=== PATIENT | male | born 1930 | race Caucasian/White ===

== ENCOUNTER 2017-05-19 14:26 | Inpatient (IN) | payer MEDICARE ==
[~2017-05-19] VITALS: Ht 188 cm; Wt 91.8 kg
[2017-05-19 15:00] LABS: BASO % 0 % (0-3); EOS # 0.2 x10^3/uL (0.0-0.7); EOS % 2 % (0-3); HEMATOCRIT 38.1 % (39.0-53.0); HEMOGLOBIN 12.7 g/dL (13.0-17.5); LYMPH # 1.5 x10^3/uL (1.0-4.8); LYMPH % 20 % (24-48); MEAN CORPUSCULAR HEMOGLOBIN 30 pg (25-35); MEAN CORPUSCULAR HGB CONC 33 g/dL (31-37); MEAN CORPUSCULAR VOLUME 89 fL (79-100); MONO # 0.5 x10^3/uL (0.0-1.1); MONO % 7 % (0-9); NEUT # 5.2 x10^3uL (1.8-7.7); NEUT % 71 % (31-73); PLATELET COUNT 196 x10^3/uL (140-400); RED BLOOD COUNT 4.26 x10^6/uL (4.30-5.70); RED CELL DISTRIBUTION WIDTH 14.3 % (11.5-14.5); WHITE BLOOD COUNT 7.4 x10^3/uL (4.0-11.0)
[2017-05-19 15:13] LABS: ALBUMIN 3.5 g/dL (3.4-5.0); ALBUMIN/GLOBULIN RATIO 1.2 (1.0-1.7); CALCIUM 8.8 mg/dL (8.5-10.1); CREATININE 1.2 mg/dL (0.7-1.3); GFR 57.7; MAGNESIUM 1.9 mg/dL (1.8-2.4); POTASSIUM 4.2 mmol/L (3.5-5.1); TOTAL BILIRUBIN 0.4 mg/dL (0.2-1.0); TOTAL PROTEIN 6.5 g/dL (6.4-8.2)
[2017-05-19 15:32] LABS: BILIRUBIN,URINE NEG (NEG); CLARITY,URINE CLEAR; COLOR,URINE YELLOW; GLUCOSE,URINE NEG (NEG)
[2017-05-19 15:33] LABS: BACTERIA,URINE 0 /HPF (0-FEW); NITRITE,URINE NEG (NEG); RBC,URINE 0 /HPF (0-2); SQUAMOUS EPITHELIAL CELL,UR MOD /LPF; UROBILINOGEN,URINE 0.2 mg/dL (0.2 mg/dL); WBC,URINE OCC /HPF (0-4)
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
[2017-05-19] MEDS ORDERED: METO25TA4 PO (15:52)
[2017-05-19] MEDS ORDERED: AMLO10TA2 PO (15:52)
[2017-05-19] MEDS ORDERED: ASPI-630 PO (15:52)
[2017-05-19] MEDS ORDERED: TRAZ50TA15 PO ×2 (15:52→17:21)
[2017-05-19] MEDS ORDERED: ATORVASTATIN CA80 MG PO (15:52)
[2017-05-19] MEDS ORDERED: TRAZ-90 PO (15:52)
[2017-05-19] MEDS ORDERED: NAPR-683 PO (15:52)
[2017-05-19] MEDS ORDERED: ACET325T9 PO (15:58)
[2017-05-19] MEDS ORDERED: DONE5TAB56 PO (15:58)
[2017-05-19] MEDS ORDERED: POLY17PO5 PO (15:59)
[2017-05-19] MEDS ORDERED: NAPR-695 PO (16:03)
[2017-05-19] MEDS ORDERED: NAPR-514 PO (16:03)
[2017-05-19] MEDS ORDERED: QUET100T4 PO ×3 (16:08→17:21)
[2017-05-19] MEDS ORDERED: MAGN2400 PO (16:08)
[2017-05-19] MEDS ORDERED: OLAN5TAB9 PO (16:08)
[2017-05-19] MEDS ORDERED: MAG355OR32 PO (16:08)
[2017-05-19] MEDS ORDERED: LORA1TAB PO (16:09)
[2017-05-19] MEDS ORDERED: OLAN10VI2 IM (16:09)
--- NOTE | 2017-05-19 16:30 | NUR ---
Admission Note with Justification for Admission to [facility] Patient admitted to [facility] for protective oversight for emergency stabilization of acute psychiatric crisis. Pt admitted from: LT Facility Mode of arrival: EMS Accompanied By: EMS Precipitating behaviors that initiated intake and admission: combative, cussing, paranoia Description of failure of out patient attempts at stabilization in previous setting list behavior and medication trials: IM Zydis and Ativan Behaviors and assessment findings upon admission: resistive, wandering Plan: Admit for protective oversight for adjustment and stabilization of medications, behaviors and mood. Intense treatment regimen including groups, medication adjustments, therapy, consistent regimen for ADL's, self care, and sleep hygiene. Daily monitoring by Inpatient staff, Psychiatry, and Medical Physician.
[2017-05-19] MEDS ORDERED: METHYL SALICYLATE/MENTHOL TOPICAL OINTMENT 29GM TUBE. TP PRN (16:45)
[2017-05-19] MEDS ORDERED: LORA2VIA4 IJ (17:21)
[2017-05-19] MEDS ORDERED: ACETAMINOPHEN 325 MG TABLET PO PRN (17:30)
[2017-05-19] MEDS: MAGNESIUM HYDROXIDE 2,400 MG/30 ML ORAL.SUSP. PO SCH ×2 (18:00→23:53)
[2017-05-19] MEDS ORDERED: MAG HYDROX/AL HYDROX/SIMETH 30 ML ORAL.SUSP PO SCH (18:00)
[2017-05-19 18:58] VITALS: BP 152/60
[2017-05-19] MEDS: QUEtiapine 100 MG TABLET. PO SCH (19:39)
[2017-05-19] MEDS: METOPROLOL TART IMMED RELEASE 25 MG TABLET PO SCH (19:40)
[2017-05-19] MEDS: NAPROXEN 500 MG TABLET PO SCH (19:40)
[2017-05-19] MEDS: traZODone 100 MG TABLET. PO SCH (19:41)
[2017-05-19] MEDS: ATORVASTATIN CALCIUM 20 MG TABLET PO SCH (19:42)
--- NOTE | 2017-05-19 21:09 | PDOC ---
Exam Note: Eric Note: Please also refer to the separate dictated note~for this date of service dictated separately.~Patient seen individually. Discussed the patient with Nursing staff reviewed the chart.~Reviewed interim history and current functioning. Reviewed vital signs,~Labs/ Radiology~and current medications noted below. Continue current treatment with the changes noted in the dictated addendum note Assessment: Vital Signs: Vital Signs Date Time Temp Pulse Resp B/P (MAP) Pulse Ox O2 Delivery O2 Flow Rate FiO2 05/19/17 19:40 69 152/60 05/19/17 18:58 98.1 18 98 05/19/17 15:40 Room Air Labs: Laboratory Tests Test 05/19/17 14:44 05/19/17 14:47 Urine Collection Type Void Urine Color Yellow Urine Clarity Clear Urine pH 5.5 Urine Specific [place] >=1.030 Urine Protein Trace (NEG-TRACE) Urine Glucose (UA) Neg mg/dL (NEG) Urine Ketones (Stick) Neg mg/dL (NEG) Urine Blood Neg (NEG) Urine Nitrite Neg (NEG) Urine Bilirubin Neg (NEG) Urine Urobilinogen Dipstick 0.2 mg/dL (0.2 mg/dL) Urine Leukocyte Esterase Neg (NEG) Urine RBC 0 /HPF (0-2) Urine WBC Occ /HPF (0-4) Urine Squamous Epithelial Cells Mod /LPF Urine Transitional Epithelial Cells Few /LPF Urine Bacteria 0 /HPF (0-FEW) White Blood Count 7.4 x10^3/uL (4.0-11.0) Red Blood Count 4.26 x10^6/uL (4.30-5.70) L Hemoglobin 12.7 g/dL (13.0-17.5) L Hematocrit 38.1 % (39.0-53.0) L Mean Corpuscular Volume 89 fL (79-100) Mean Corpuscular Hemoglobin 30 pg (25-35) Mean Corpuscular Hemoglobin Concent 33 g/dL (31-37) Red Cell Distribution Width 14.3 % (11.5-14.5) Platelet Count 196 x10^3/uL (140-400) Neutrophils (%) (Auto) 71 % (31-73) Lymphocytes (%) (Auto) 20 % (24-48) L Monocytes (%) (Auto) 7 % (0-9) Eosinophils (%) (Auto) 2 % (0-3) Basophils (%) (Auto) 0 % (0-3) Neutrophils # (Auto) 5.2 x10^3uL (1.8-7.7) Lymphocytes # (Auto) 1.5 x10^3/uL (1.0-4.8) Monocytes # (Auto) 0.5 x10^3/uL (0.0-1.1) Eosinophils # (Auto) 0.2 x10^3/uL (0.0-0.7) Basophils # (Auto) 0.0 x10^3/uL (0.0-0.2) Sodium Level 139 mmol/L (136-145) Potassium Level 4.2 mmol/L (3.5-5.1) Chloride Level 105 mmol/L (98-107) Carbon Dioxide Level 28 mmol/L (21-32) Anion Gap 6 (6-14) Blood Urea Nitrogen 28 mg/dL (8-26) H Creatinine 1.2 mg/dL (0.7-1.3) Estimated GFR (Cockcroft-Gault) 57.7 BUN/Creatinine Ratio 23 (6-20) H Glucose Level 109 mg/dL (70-99) H Calcium Level 8.8 mg/dL (8.5-10.1) Magnesium Level 1.9 mg/dL (1.8-2.4) Total Bilirubin 0.4 mg/dL (0.2-1.0) Aspartate Amino Transferase (AST) 22 U/L (15-37) Alanine Aminotransferase (ALT) 28 U/L (16-63) Alkaline Phosphatase 77 U/L (46-116) Total Protein 6.5 g/dL (6.4-8.2) Albumin 3.5 g/dL (3.4-5.0) Albumin/Globulin Ratio 1.2 (1.0-1.7) Current Medications: Meds: Current Medications Multi-Ingredient Ointment (Analgesic [place]) 1 salma PRN QID PRN TP MUSCLE PAIN; Start 05/19/17 at 16:45 Amlodipine Besylate (Norvasc) 10 mg DAILY PO ; Start 05/20/17 at 09:00 Aspirin (Children'S Aspirin) 81 mg DAILY PO ; Start 05/20/17 at 09:00 Al Hydroxide/Mg Hydroxide (Mylanta Plus Xs) 30 ml Q6HRS PO ; Start 05/19/17 at 18 :00; Stop 05/19/17 at 19:45; Status DC Metoprolol Tartrate (Lopressor) 25 mg BID PO Last administered on 05/19/17at 19: 40; Start 05/19/17 at 21:00 Naproxen (Naprosyn) 500 mg BID PO Last administered on 05/19/17at 19:40; Start at 21:00 Trazodone HCl (Desyrel) 50 mg BIDACLD PO ; Start 05/20/17 at 11:30 Trazodone HCl (Desyrel) 200 mg HS PO Last administered on 05/19/17at 19:41; Start 05/19/17 at 21:00 Atorvastatin Calcium (Lipitor) 80 mg QHS PO Last administered on 05/19/17at 19:42 ; Start 05/19/17 at 21:00 Magnesium Hydroxide (Milk Of Magnesia) 2,400 mg Q6HRS PO ; Start 05/19/17 at 18: 00 Acetaminophen (Tylenol) 325 mg PRN Q6HRS PRN PO PAIN; Start 05/19/17 at 17:30 Polyethylene Glycol (miraLAX) 17 gm DAILY PO ; Start 05/20/17 at 09:00 Quetiapine Fumarate (SEROquel) 50 mg BIDACBL PO ; Start 05/20/17 at 07:30 Quetiapine Fumarate (SEROquel) 100 mg DAILY16 PO ; Start 05/20/17 at 16:00 Quetiapine Fumarate (SEROquel) 100 mg HS PO Last administered on 05/19/17at 19:39 ; Start 05/19/17 at 21:00 Trazodone HCl (Desyrel) 25 mg DAILY PO ; Start 05/20/17 at 09:00 Lorazepam (Ativan) 1 mg PRN Q4HRS PRN PO ANXIETY / AGITATION; Start 05/19/17 at 17:30 Olanzapine (ZyPREXA ZYDIS) 5 mg PRN Q4HRS PRN PO ANXIETY / AGITATION; Start 05/19/17 at 17:45 Al Hydroxide/Mg Hydroxide (Mylanta Plus Xs) 30 ml PRN Q6HRS PRN PO CONSTIPATION ; Start 05/20/17 at 18:00 Active Scripts Active Reported Seroquel (Quetiapine Fumarate) 100 Mg Tablet 100 Mg PO HS Seroquel (Quetiapine Fumarate) 100 Mg Tablet 100 Mg PO DAILY16 Trazodone Hcl 50 Mg Tablet 25 Mg PO DAILY Lorazepam 1 Mg Tablet 1 Mg PO PRN Q4HRS PRN Seroquel (Quetiapine Fumarate) 100 Mg Tablet 50 Mg PO BIDACBL Mi Acid Suspension (Mag Hydrox/Al Hydrox/Simeth) 355 Ml Oral.susp 30 Ml PO PRN Q6HRS Milk Of Magnesia (Magnesium Hydroxide) 2,400 Mg/10 Ml Oral.susp 30 Ml PO PRN Q6HRS PRN Miralax (Polyethylene Glycol 3350) 17 Gm Powd.pack 1 Packet PO DAILY Tylenol (Acetaminophen) 325 Mg Tablet 1 Tab PO PRN Q6HRS PRN Aspirin 81 Mg Tab.chew 81 Mg PO DAILY Amlodipine Besylate 10 Mg Tablet 10 Mg PO DAILY Metoprolol Tartrate 25 Mg Tablet 25 Mg PO BID Trazodone Hcl 100 Mg Tablet 200 Mg PO HS Atorvastatin Calcium 80 Mg Tablet 80 Mg PO QHS Naprosyn (Naproxen) 500 Mg Tablet 500 Mg PO BID Trazodone Hcl 50 Mg Tablet 50 Mg PO BIDACLD I have reviewed the current psychotropics carefully including drug interactions. Risk benefit ratio favors no change other than as noted in my dictated progress note. Diagnosis: Problems: (1) Atrial fibrillation (2) Medical clearance for psychiatric admission GENARO HEATH MD May 19, 2017 21:09
--- NOTE | 2017-05-19 23:59 | NUR ---
Behavior Intervention Response and Plan: BIRP Note: Behavior: Assumed Care of patient, patient located in Bed at shift change. Patient exhibited the following behavior Calm, Disorganized, Compliant. Brief assessment on rounds of vital signs, medication needs, lab studies, and pain. Treatment plan problems :1-2 Intervention: Patient assessed and the following interventions initiated safety checks 15 Minute Checks Head to toe Assessment , Medications , Cognitive Assessment. Response: After interactions and interventions patient responded in the following manner, Disorganized , Restless ,Compliant. Continue to assess behaviors and condition will continue to monitor throughout the shift as needed. Patient educated on ADL's, and hand hygiene. Plan: Continue to monitor Master Treatment Plan for patient's progress toward short term goals of Decreased Agitation, Decreased Aggression, care home goals to return to previous living setting vs placement. Continue to assess patient for changes in above assessment. Monitor for medication needs, pain, and safety concerns. Hourly rounding performed to ensure safe environment.
--- NOTE | 2017-05-20 04:54 | NUR ---
Nsg Note: Pt awoke later in shift & was compliant w/ taking a shower. DIRECTOR OF SALES SUPPORT's reported that pt skin is intact w/ no wounds/rashes noted.
[2017-05-20 06:27] VITALS: BP 147/92
[2017-05-20] MEDS: QUEtiapine 50 MG TABLET. PO SCH ×2 (07:48→11:30)
[2017-05-20] MEDS: METOPROLOL TART IMMED RELEASE 25 MG TABLET PO SCH ×3 (07:48→20:25)
[2017-05-20] MEDS: ASPIRIN 81 MG TAB.CHEW PO SCH (07:48)
[2017-05-20] MEDS: POLYETHYLENE GLYCOL 3350 17 GM PACKET. PO SCH (07:48)
[2017-05-20] MEDS: LORazepam 1 MG TABLET PO PRN (07:48)
[2017-05-20] MEDS: traZODone 50 MG TABLET. PO SCH ×3 (07:48→18:16)
[2017-05-20] MEDS: amLODIPine BESYLATE 10 MG TABLET PO SCH (07:49)
[2017-05-20] MEDS: NAPROXEN 500 MG TABLET PO SCH ×2 (07:49→20:25)
--- NOTE | 2017-05-20 10:05 | NUR ---
Behavior Intervention Response and Plan: BIRP Note: Behavior: Assumed Care of patient, patient located in Dining Room at shift change. Patient exhibited the following behavior Restless, Compulsive, Irritable. Brief assessment on rounds of vital signs, medication needs, lab studies, and pain. Treatment plan problems . Intervention: Patient assessed and the following interventions initiated safety checks 15 Minute Checks Cognitive Assessment , Head to toe Assessment , Medications. Response: After interactions and interventions patient responded in the following manner, Disorganized , Compliant ,Sleeping. Continue to assess behaviors and condition will continue to monitor throughout the shift as needed. Patient educated on ADL's, and hand hygiene. Plan: Continue to monitor Master Treatment Plan for patient's progress toward short term goals of Decreased Agitation, Decreased Aggression, bed bug exterminator goals to return to previous living setting vs placement. Continue to assess patient for changes in above assessment. Monitor for medication needs, pain, and safety concerns. Hourly rounding performed to ensure safe environment.
[2017-05-20] MEDS: MAGNESIUM HYDROXIDE 2,400 MG/30 ML ORAL.SUSP. PO PRN (10:07)
[2017-05-20 10:24] LABS: THYROID STIM HORMONE (TSH) 0.559 uIU/mL (0.358-3.740)
--- NOTE | 2017-05-20 11:21 | EKG ---
[address] [address] Test Date: 2017-05-19 Test Time: 14:50:56 Pat Name: BLAIRE TORRES Department: Room: [address] [place] [address] Gender: M Derrick Builder: JOHN : 1930 Requested By: CANDIDA GERMAN Order Number: [id number] Reading MD: Imer Munoz Measurements Intervals [place] Rate: 60 P: RI: QRS: -63 QRSD: 130 T: 21 QT: 486 QTc: 486 Interpretive Statements ATRIAL FIBRILLATION VENTRICULAR PREMATURE COMPLEX(ES) ABNORMAL LEFT AXIS DEVIATION LEFT ANTERIOR FASCICULAR BLOCK RIGHT BUNDLE BRANCH BLOCK BIFASCICULAR BLOCK QRS(T) CONTOUR ABNORMALITY CONSIDER INFERIOR INFARCT ABNORMAL ECG RI6.01 No previous ECG available for comparison Electronically Signed On 06-01-2017 13:54:40 CDT by Imer Munoz
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
[2017-05-20 12:08] LABS: T3 TOTAL 57 ng/dL (71-180); THYROXINE 5.2 ug/dL (4.5-12.0)
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
[2017-05-20 16:15] VITALS: BP 129/66
[2017-05-20] MEDS ORDERED: MAG HYDROX/AL HYDROX/SIMETH 30 ML ORAL.SUSP PO PRN (18:00)
[2017-05-20] MEDS: QUEtiapine 100 MG TABLET. PO SCH ×2 (18:16→20:24)
--- NOTE | 2017-05-20 20:13 | PDOC ---
Exam Note: Eric Note: Please also refer to the separate dictated note~for this date of service dictated separately.~Patient seen individually. Discussed the patient with Nursing staff reviewed the chart.~Reviewed interim history and current functioning. Reviewed vital signs,~Labs/ Radiology~and current medications noted below. Continue current treatment with the changes noted in the dictated addendum note Assessment: Vital Signs: Vital Signs Date Time Temp Pulse Resp B/P (MAP) Pulse Ox O2 Delivery O2 Flow Rate FiO2 05/20/17 16:15 97.2 66 16 129/66 (87) 95 05/19/17 15:40 Room Air I&O Intake and Output 05/20/17 07:00 Intake Total 440 ml Balance 440 ml Intake Oral 440 ml Current Medications: Meds: Current Medications Multi-Ingredient Ointment (Analgesic [place]) 1 salma PRN QID PRN TP MUSCLE PAIN; Start 05/19/17 at 16:45 Amlodipine Besylate (Norvasc) 10 mg DAILY PO ; Start 05/20/17 at 09:00 Aspirin (Children'S Aspirin) 81 mg DAILY PO Last administered on 05/20/17at 07:48 ; Start 05/20/17 at 09:00 Al Hydroxide/Mg Hydroxide (Mylanta Plus Xs) 30 ml Q6HRS PO ; Start 05/19/17 at 18 :00; Stop 05/19/17 at 19:45; Status DC Metoprolol Tartrate (Lopressor) 25 mg BID PO Last administered on 05/19/17at 19: 40; Start 05/19/17 at 21:00 Naproxen (Naprosyn) 500 mg BID PO Last administered on 05/20/17at 07:49; Start at 21:00 Trazodone HCl (Desyrel) 50 mg BIDACLD PO Last administered on 05/20/17 18:16; Start 05/20/17 at 11:30 Trazodone HCl (Desyrel) 200 mg HS PO Last administered on 05/19/17 19:41; Start 05/19/17 at 21:00 Atorvastatin Calcium (Lipitor) 80 mg QHS PO Last administered on 05/19/17at 19:42 ; Start 05/19/17 at 21:00 Magnesium Hydroxide (Milk Of Magnesia) 2,400 mg Q6HRS PO ; Start 05/19/17 at 18: 00; Stop 05/20/17 at 01:23; Status DC Acetaminophen (Tylenol) 325 mg PRN Q6HRS PRN PO PAIN; Start 05/19/17 at 17:30 Polyethylene Glycol (miraLAX) 17 gm DAILY PO Last administered on 05/20/17at 07: 48; Start 05/20/17 at 09:00 Quetiapine Fumarate (SEROquel) 50 mg BIDACBL PO Last administered on 05/20/17at 11:30; Start 05/20/17 at 07:30 Quetiapine Fumarate (SEROquel) 100 mg DAILY16 PO Last administered on 05/20/17 18:16; Start 05/20/17 at 16:00 Quetiapine Fumarate (SEROquel) 100 mg HS PO Last administered on 05/19/17at 19:39 ; Start 05/19/17 at 21:00 Trazodone HCl (Desyrel) 25 mg DAILY PO Last administered on 05/20/17at 07:48; Start 05/20/17 at 09:00 Lorazepam (Ativan) 1 mg PRN Q4HRS PRN PO ANXIETY / AGITATION; Start 05/19/17 at 17:30 Olanzapine (ZyPREXA ZYDIS) 5 mg PRN Q4HRS PRN PO ANXIETY / AGITATION; Start 05/19/17 at 17:45 Al Hydroxide/Mg Hydroxide (Mylanta Plus Xs) 30 ml PRN Q6HRS PRN PO CONSTIPATION ; Start 05/20/17 at 18:00 Magnesium Hydroxide (Milk Of Magnesia) 2,400 mg PRN Q6HRS PRN PO CONSTIPATION Last administered on 05/20/17at 10:07; Start 05/20/17 at 01:30 Mirtazapine (Remeron) 7.5 mg QHS PO ; Start 05/20/17 at 21:00 Active Scripts Active Reported Seroquel (Quetiapine Fumarate) 100 Mg Tablet 100 Mg PO HS Seroquel (Quetiapine Fumarate) 100 Mg Tablet 100 Mg PO DAILY16 Trazodone Hcl 50 Mg Tablet 25 Mg PO DAILY Lorazepam 1 Mg Tablet 1 Mg PO PRN Q4HRS PRN Seroquel (Quetiapine Fumarate) 100 Mg Tablet 50 Mg PO BIDACBL Mi Acid Suspension (Mag Hydrox/Al Hydrox/Simeth) 355 Ml Oral.susp 30 Ml PO PRN Q6HRS Milk Of Magnesia (Magnesium Hydroxide) 2,400 Mg/10 Ml Oral.susp 30 Ml PO PRN Q6HRS PRN Miralax (Polyethylene Glycol 3350) 17 Gm Powd.pack 1 Packet PO DAILY Tylenol (Acetaminophen) 325 Mg Tablet 1 Tab PO PRN Q6HRS PRN Aspirin 81 Mg Tab.chew 81 Mg PO DAILY Amlodipine Besylate 10 Mg Tablet 10 Mg PO DAILY Metoprolol Tartrate 25 Mg Tablet 25 Mg PO BID Trazodone Hcl 100 Mg Tablet 200 Mg PO HS Atorvastatin Calcium 80 Mg Tablet 80 Mg PO QHS Naprosyn (Naproxen) 500 Mg Tablet 500 Mg PO BID Trazodone Hcl 50 Mg Tablet 50 Mg PO BIDACLD I have reviewed the current psychotropics carefully including drug interactions. Risk benefit ratio favors no change other than as noted in my dictated progress note. Diagnosis: Problems: (1) Atrial fibrillation (2) Medical clearance for psychiatric admission (3) Anxiety disorder (4) Dementia in Alzheimer's disease with delusions (5) Dementia in Alzheimer's disease with depression (6) Dementia, vascular, with delusions (7) Dementia, vascular, with depression (8) Impulse control disorder GENARO HEATH MD May 20, 2017 20:13
[2017-05-20] MEDS: traZODone 100 MG TABLET. PO SCH (20:24)
[2017-05-20] MEDS: ATORVASTATIN CALCIUM 20 MG TABLET PO SCH (20:24)
[2017-05-20] MEDS: MIRTAZAPINE 7.5 MG TABLET. PO SCH (20:26)
[2017-05-20 23:06] LABS: HEMOGLOBIN A1C 5.5 % (4.8-5.6)
--- NOTE | 2017-05-21 00:03 | NUR ---
Behavior Intervention Response and Plan: BIRP Note: Behavior: Assumed Care of patient, patient located in Day Room at shift change. Patient exhibited the following behavior Restless, Disorganized, Resistive. Brief assessment on rounds of vital signs, medication needs, lab studies, and pain. Treatment plan problems:1-2 Intervention: Patient assessed and the following interventions initiated safety checks 15 Minute Checks Cognitive Assessment , Head to toe Assessment , Medications. Response: After interactions and interventions patient responded in the following manner, Disorganized , Irritable ,Disorganized. Continue to assess behaviors and condition will continue to monitor throughout the shift as needed. Patient educated on ADL's, and hand hygiene. Plan: Continue to monitor Master Treatment Plan for patient's progress toward short term goals of Decreased Agitation, Decreased Aggression, intermediate goals to return to previous living setting vs placement. Continue to assess patient for changes in above assessment. Monitor for medication needs, pain, and safety concerns. Hourly rounding performed to ensure safe environment.
[2017-05-21] MEDS: LORazepam 1 MG TABLET PO PRN (00:09)
--- NOTE | 2017-05-21 00:30 | NUR ---
Nsg Note: Pt was given prn zydis along w/ prn ativan @ 2300 secondary to pt trying to move & turn over furniture in dayroom. Attempts to de-escalate pt by re-direction & distraction merely seemed to escalate pt further. PRNs were effective as pt is currently in bed sleeping. Will cont. to monitor
[2017-05-21 06:27] VITALS: BP 105/58
[2017-05-21] MEDS: QUEtiapine 50 MG TABLET. PO SCH ×2 (07:46→11:35)
[2017-05-21] MEDS: POLYETHYLENE GLYCOL 3350 17 GM PACKET. PO SCH (07:46)
[2017-05-21] MEDS: traZODone 50 MG TABLET. PO SCH ×3 (07:47→16:25)
[2017-05-21] MEDS: ASPIRIN 81 MG TAB.CHEW PO SCH (07:47)
[2017-05-21] MEDS: NAPROXEN 500 MG TABLET PO SCH ×2 (07:48→19:50)
[2017-05-21] MEDS: METOPROLOL TART IMMED RELEASE 25 MG TABLET PO SCH ×2 (07:51→19:49)
[2017-05-21] MEDS: amLODIPine BESYLATE 10 MG TABLET PO SCH (07:51)
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
--- NOTE | 2017-05-21 11:27 | NUR ---
Psychosocial assessment completed with Pt.'s son over the phone. Pt. grew up in [place], [place] with two sisters and two brothers on a farm. Pt. completed high school and enlisted in the [employer]. Pt. never saw combat and per son, does receive VA benefits. 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 Pt. was recently admitted to [facility] and returned to his facility for one day before being taken to the ER. Pt. has no family history of mental health diagnosis. Son would like Pt. to engage more in activities and would like Pt. to return to [facility]. SWS called and left a message for SW at [facility].
--- NOTE | 2017-05-21 13:46 | NUR ---
Behavior Intervention Response and Plan: BIRP Note: Behavior: Assumed Care of patient, patient located in Dining Room at shift change. Patient exhibited the following behavior Disorganized, , Compliant. Brief assessment on rounds of vital signs, medication needs, lab studies, and pain. Treatment plan problems . Intervention: Patient assessed and the following interventions initiated safety checks 15 Minute Checks Cognitive Assessment , Head to toe Assessment , Medications. Response: After interactions and interventions patient responded in the following manner, Calm , Wandering ,Disorganized. Continue to assess behaviors and condition will continue to monitor throughout the shift as needed. Patient educated on ADL's, and hand hygiene. 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 Continue to assess patient for changes in above assessment. Monitor for medication needs, pain, and safety concerns. Hourly rounding performed to ensure safe environment.
[2017-05-21] MEDS: QUEtiapine 100 MG TABLET. PO SCH ×2 (16:26→19:50)
[2017-05-21 16:28] VITALS: BP 126/70
[2017-05-21] MEDS: traZODone 100 MG TABLET. PO SCH (19:50)
[2017-05-21] MEDS: MIRTAZAPINE 7.5 MG TABLET. PO SCH (19:50)
[2017-05-21] MEDS: ATORVASTATIN CALCIUM 20 MG TABLET PO SCH (19:51)
--- NOTE | 2017-05-21 20:01 | PDOC ---
Exam Note: Eric Note: Please also refer to the separate dictated note~for this date of service dictated separately.~Patient seen individually. Discussed the patient with Nursing staff reviewed the chart.~Reviewed interim history and current functioning. Reviewed vital signs,~Labs/ Radiology~and current medications noted below. Continue current treatment with the changes noted in the dictated addendum note Assessment: Vital Signs: Vital Signs Date Time Temp Pulse Resp B/P (MAP) Pulse Ox O2 Delivery O2 Flow Rate FiO2 05/21/17 19:49 69 126/70 05/21/17 16:28 97.3 20 100 05/19/17 15:40 Room Air I&O Intake and Output 05/21/17 07:00 Intake Total 480 ml Balance 480 ml Intake Oral 480 ml # Bowel Movements 2 Current Medications: Meds: Current Medications Multi-Ingredient Ointment (Analgesic [place]) 1 salma PRN QID PRN TP MUSCLE PAIN; Start 05/19/17 at 16:45 Amlodipine Besylate (Norvasc) 10 mg DAILY PO ; Start 05/20/17 at 09:00 Aspirin (Children'S Aspirin) 81 mg DAILY PO Last administered on 05/21/17at 07:47 ; Start 05/20/17 at 09:00 Al Hydroxide/Mg Hydroxide (Mylanta Plus Xs) 30 ml Q6HRS PO ; Start 05/19/17 at 18 :00; Stop 05/19/17 at 19:45; Status DC Metoprolol Tartrate (Lopressor) 25 mg BID PO Last administered on 05/21/17at 19: 49; Start 05/19/17 at 21:00 Naproxen (Naprosyn) 500 mg BID PO Last administered on 05/21/17at 19:50; Start at 21:00 Trazodone HCl (Desyrel) 50 mg BIDACLD PO Last administered on 05/21/17at 16:25; Start 05/20/17 at 11:30 Trazodone HCl (Desyrel) 200 mg HS PO Last administered on 05/21/17 19:50; Start 05/19/17 at 21:00 Atorvastatin Calcium (Lipitor) 80 mg QHS PO Last administered on 05/21/17at 19:51 ; Start 05/19/17 at 21:00 Magnesium Hydroxide (Milk Of Magnesia) 2,400 mg Q6HRS PO ; Start 05/19/17 at 18: 00; Stop 05/20/17 at 01:23; Status DC Acetaminophen (Tylenol) 325 mg PRN Q6HRS PRN PO PAIN; Start 05/19/17 at 17:30 Polyethylene Glycol (miraLAX) 17 gm DAILY PO Last administered on 05/21/17 07: 46; Start 05/20/17 at 09:00 Quetiapine Fumarate (SEROquel) 50 mg BIDACBL PO Last administered on 05/21/17 11:35; Start 05/20/17 at 07:30 Quetiapine Fumarate (SEROquel) 100 mg DAILY16 PO Last administered on 05/21/17 16:26; Start 05/20/17 at 16:00 Quetiapine Fumarate (SEROquel) 100 mg HS PO Last administered on 05/21/17 19:50 ; Start 05/19/17 at 21:00 Trazodone HCl (Desyrel) 25 mg DAILY PO Last administered on 05/21/17 07:47; Start 05/20/17 at 09:00 Lorazepam (Ativan) 1 mg PRN Q4HRS PRN PO ANXIETY / AGITATION Last administered on 05/21/17 00:09; Start 05/19/17 at 17:30 Olanzapine (ZyPREXA ZYDIS) 5 mg PRN Q4HRS PRN PO ANXIETY / AGITATION Last administered on 05/21/17 00:09; Start 05/19/17 at 17:45 Al Hydroxide/Mg Hydroxide (Mylanta Plus Xs) 30 ml PRN Q6HRS PRN PO CONSTIPATION ; Start 05/20/17 at 18:00 Magnesium Hydroxide (Milk Of Magnesia) 2,400 mg PRN Q6HRS PRN PO CONSTIPATION Last administered on 05/20/17 10:07; Start 05/20/17 at 01:30 Mirtazapine (Remeron) 7.5 mg QHS PO Last administered on 05/21/17 19:50; Start 05/20/17 at 21:00 Active Scripts Active Reported Seroquel (Quetiapine Fumarate) 100 Mg Tablet 100 Mg PO HS Seroquel (Quetiapine Fumarate) 100 Mg Tablet 100 Mg PO DAILY16 Trazodone Hcl 50 Mg Tablet 25 Mg PO DAILY Lorazepam 1 Mg Tablet 1 Mg PO PRN Q4HRS PRN Seroquel (Quetiapine Fumarate) 100 Mg Tablet 50 Mg PO BIDACBL Mi Acid Suspension (Mag Hydrox/Al Hydrox/Simeth) 355 Ml Oral.susp 30 Ml PO PRN Q6HRS Milk Of Magnesia (Magnesium Hydroxide) 2,400 Mg/10 Ml Oral.susp 30 Ml PO PRN Q6HRS PRN Miralax (Polyethylene Glycol 3350) 17 Gm Powd.pack 1 Packet PO DAILY Tylenol (Acetaminophen) 325 Mg Tablet 1 Tab PO PRN Q6HRS PRN Aspirin 81 Mg Tab.chew 81 Mg PO DAILY Amlodipine Besylate 10 Mg Tablet 10 Mg PO DAILY Metoprolol Tartrate 25 Mg Tablet 25 Mg PO BID Trazodone Hcl 100 Mg Tablet 200 Mg PO HS Atorvastatin Calcium 80 Mg Tablet 80 Mg PO QHS Naprosyn (Naproxen) 500 Mg Tablet 500 Mg PO BID Trazodone Hcl 50 Mg Tablet 50 Mg PO BIDACLD I have reviewed the current psychotropics carefully including drug interactions. Risk benefit ratio favors no change other than as noted in my dictated progress note. 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
--- NOTE | 2017-05-21 21:39 | NUR ---
Behavior Intervention Response and Plan: BIRP Note: Behavior: Assumed Care of patient, patient located in Day Room at shift change. Patient exhibited the following behavior Calm, Compliant, Cooperative. Brief assessment on rounds of vital signs, medication needs, lab studies, and pain. Treatment plan problems Dementia W/BD and Fall Risk. Intervention: Patient assessed and the following interventions initiated safety checks 15 Minute Checks Cognitive Assessment , Medications , Oral Hydration. Response: After interactions and interventions patient responded in the following manner, Calm , Compliant ,Cooperative. Continue to assess behaviors and condition will continue to monitor throughout the shift as needed. Patient educated on ADL's, and hand hygiene. Plan: Continue to monitor Master Treatment Plan for patient's progress toward short term goals of Decreased Agitation, Decreased Anxiety, fci goals to return to previous living setting vs placement. Continue to assess patient for changes in above assessment. Monitor for medication needs, pain, and safety concerns. Hourly rounding performed to ensure safe environment.
--- NOTE | 2017-05-21 23:12 | NUR ---
Nursing Note Patient up from bed repeatedly and is difficult to redirect. Patient continues to exit bed without assistance after multiple attempts by staff to make patient more comfortable as well as offer toileting. Patient is drowsy and at a high risk of falling if patient continues getting out of bed without assistance. Patient given PRN Zyprexa per PRN order.
[2017-05-22] MEDS: LORazepam 1 MG TABLET PO PRN (00:21)
--- NOTE | 2017-05-22 00:25 | NUR ---
Nursing Note Patient is agitated and up without assistance in bedroom. Patient cussing at this nurse while attempting to assess the needs of the patient. Patient is non redirectable and is having difficulty tracking during conversation. Patient given PRN Ativan per PRN order.
--- NOTE | 2017-05-22 03:01 | PN ---
DATE: 05/20/2017 This is a late entry for 05/20/2017, covers elements not covered in my initial note of 05/20/2017. SUBJECTIVE: I met with the patient the evening of 05/20/2017. The patient slept 4-1/2 hours previous evening, had a shower previous night, was more cooperative. Trazodone could have caused the false positive urine test for ecstasy in the patient, per review by nursing staff. He slept somewhat poorly previous evening, appetite fair. He is confused, delusional at times, believed another demented patient is his . Ambulates independently. REVIEW OF SYSTEMS: No CV, , pulmonary, eye, ENT system symptoms on review. Reliability poor. MENTAL STATUS EXAMINATION: Oriented to himself. Insight, judgment, recent and remote memory, attention, concentration, fund of knowledge poor, consistent with his diagnosis mentioned in my initial note. IMPRESSION: Major neurocognitive disorder, Alzheimer, vascular with depression, delusion, behavioral disturbance. PLAN: Start Remeron 7.5 mg at bedtime. Continue rest unchanged from my initial note. MAN Natalie HEATH MD DR: RICK/sterling JOB#: [id number] / [id number]
[2017-05-22 06:08] VITALS: BP 151/96
[2017-05-22] MEDS: NAPROXEN 500 MG TABLET PO SCH ×2 (07:45→20:42)
[2017-05-22] MEDS: ASPIRIN 81 MG TAB.CHEW PO SCH (07:45)
[2017-05-22] MEDS: amLODIPine BESYLATE 10 MG TABLET PO SCH (07:46)
[2017-05-22] MEDS: QUEtiapine 50 MG TABLET. PO SCH ×2 (07:46→11:50)
[2017-05-22] MEDS: METOPROLOL TART IMMED RELEASE 25 MG TABLET PO SCH ×2 (07:46→20:42)
[2017-05-22] MEDS: POLYETHYLENE GLYCOL 3350 17 GM PACKET. PO SCH (07:46)
[2017-05-22] MEDS: traZODone 50 MG TABLET. PO SCH ×3 (07:46→16:04)
--- NOTE | 2017-05-22 10:08 | NUR ---
Behavior Intervention Response and Plan: BIRP Note: Behavior: Assumed Care of patient, patient located in Dining Room at shift change. Patient exhibited the following behavior Restless, Compulsive, Disorganized. Brief assessment on rounds of vital signs, medication needs, lab studies, and pain. Treatment plan problems . Intervention: Patient assessed and the following interventions initiated safety checks 15 Minute Checks Cognitive Assessment , Head to toe Assessment , Medications. Response: After interactions and interventions patient responded in the following manner, Disorganized , Irritable ,Drowsy. Continue to assess behaviors and condition will continue to monitor throughout the shift as needed. Patient educated on ADL's, and hand hygiene. 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 Continue to assess patient for changes in above assessment. Monitor for medication needs, pain, and safety concerns. Hourly rounding performed to ensure safe environment.
--- NOTE | 2017-05-22 15:10 | NUR ---
Attempted to meet and complete reassessment; however, Pt. was sleeping and both 1020 and 1510
[2017-05-22 15:57] VITALS: BP 124/75
[2017-05-22] MEDS: QUEtiapine 100 MG TABLET. PO SCH ×2 (16:04→20:42)
--- NOTE | 2017-05-22 17:26 | NUR ---
Patient has appeared less drowsy this shift. He is very confused/disorganized and it is difficult for him to follow simple instructions. Patient becomes resistive with staff if they attempt to escalera him and will become combative. Patient needs to be approached in a calm matter and given step by step instructions in simple commands. Patient allowed this nurse to shave his face and trim his nails without any issues. He has been compliant with medications this shift, meds were crushed and hidden in chocolate pudding/ice cream. Patient ambulating in a wheelchair at this time d/t weakness, but ambulation is encouraged, will continue to monitor.
--- NOTE | 2017-05-22 19:57 | PDOC ---
Exam Note: Eric Note: Please also refer to the separate dictated note~for this date of service dictated separately.~Patient seen individually. Discussed the patient with Nursing staff reviewed the chart.~Reviewed interim history and current functioning. Reviewed vital signs,~Labs/ Radiology~and current medications noted below. Continue current treatment with the changes noted in the dictated addendum note Assessment: Vital Signs: Vital Signs Date Time Temp Pulse Resp B/P (MAP) Pulse Ox O2 Delivery O2 Flow Rate FiO2 05/22/17 15:57 97.8 61 18 124/75 (91) 99 05/19/17 15:40 Room Air I&O Intake and Output 05/22/17 07:00 Intake Total 1200 ml Balance 1200 ml Intake Oral 1200 ml # Voids 1 # Bowel Movements 1 Current Medications: Meds: Current Medications Multi-Ingredient Ointment (Analgesic [place]) 1 salma PRN QID PRN TP MUSCLE PAIN; Start 05/19/17 at 16:45 Amlodipine Besylate (Norvasc) 10 mg DAILY PO Last administered on 05/22/17at 07: 46; Start 05/20/17 at 09:00 Aspirin (Children'S Aspirin) 81 mg DAILY PO Last administered on 05/22/17at 07:45 ; Start 05/20/17 at 09:00 Al Hydroxide/Mg Hydroxide (Mylanta Plus Xs) 30 ml Q6HRS PO ; Start 05/19/17 at 18 :00; Stop 05/19/17 at 19:45; Status DC Metoprolol Tartrate (Lopressor) 25 mg BID PO Last administered on 05/22/17at 07: 46; Start 05/19/17 at 21:00 Naproxen (Naprosyn) 500 mg BID PO Last administered on 05/22/17at 07:45; Start at 21:00 Trazodone HCl (Desyrel) 50 mg BIDACLD PO Last administered on 05/22/17at 16:04; Start 05/20/17 at 11:30 Trazodone HCl (Desyrel) 200 mg HS PO Last administered on 05/21/17 19:50; Start 05/19/17 at 21:00 Atorvastatin Calcium (Lipitor) 80 mg QHS PO Last administered on 05/21/17 19:51 ; Start 05/19/17 at 21:00 Magnesium Hydroxide (Milk Of Magnesia) 2,400 mg Q6HRS PO ; Start 05/19/17 at 18: 00; Stop 05/20/17 at 01:23; Status DC Acetaminophen (Tylenol) 325 mg PRN Q6HRS PRN PO PAIN; Start 05/19/17 at 17:30 Polyethylene Glycol (miraLAX) 17 gm DAILY PO Last administered on 05/22/17 07: 46; Start 05/20/17 at 09:00 Quetiapine Fumarate (SEROquel) 50 mg BIDACBL PO Last administered on 05/22/17 11:50; Start 05/20/17 at 07:30 Quetiapine Fumarate (SEROquel) 100 mg DAILY16 PO Last administered on 05/22/17 16:04; Start 05/20/17 at 16:00 Quetiapine Fumarate (SEROquel) 100 mg HS PO Last administered on 05/21/17 19:50 ; Start 05/19/17 at 21:00 Trazodone HCl (Desyrel) 25 mg DAILY PO Last administered on 05/22/17 07:46; Start 05/20/17 at 09:00 Lorazepam (Ativan) 1 mg PRN Q4HRS PRN PO ANXIETY / AGITATION Last administered on 05/22/17 00:21; Start 05/19/17 at 17:30 Olanzapine (ZyPREXA ZYDIS) 5 mg PRN Q4HRS PRN PO ANXIETY / AGITATION Last administered on 05/21/17 23:09; Start 05/19/17 at 17:45 Al Hydroxide/Mg Hydroxide (Mylanta Plus Xs) 30 ml PRN Q6HRS PRN PO CONSTIPATION ; Start 05/20/17 at 18:00 Magnesium Hydroxide (Milk Of Magnesia) 2,400 mg PRN Q6HRS PRN PO CONSTIPATION Last administered on 05/20/17 10:07; Start 05/20/17 at 01:30 Mirtazapine (Remeron) 7.5 mg QHS PO Last administered on 05/21/17 19:50; Start 05/20/17 at 21:00; Stop 05/22/17 at 18:07; Status DC Vitamin D (Vitamin D3) 2,000 unit DAILY PO ; Start 05/23/17 at 09:00 Cyanocobalamin (Vitamin B-12) 1,000 mcg DAILY PO ; Start 05/23/17 at 09:00 Mirtazapine (Remeron) 15 mg QHS PO ; Start 05/22/17 at 21:00 Active Scripts Active Reported Seroquel (Quetiapine Fumarate) 100 Mg Tablet 100 Mg PO HS Seroquel (Quetiapine Fumarate) 100 Mg Tablet 100 Mg PO DAILY16 Trazodone Hcl 50 Mg Tablet 25 Mg PO DAILY Lorazepam 1 Mg Tablet 1 Mg PO PRN Q4HRS PRN Seroquel (Quetiapine Fumarate) 100 Mg Tablet 50 Mg PO BIDACBL Mi Acid Suspension (Mag Hydrox/Al Hydrox/Simeth) 355 Ml Oral.susp 30 Ml PO PRN Q6HRS Milk Of Magnesia (Magnesium Hydroxide) 2,400 Mg/10 Ml Oral.susp 30 Ml PO PRN Q6HRS PRN Miralax (Polyethylene Glycol 3350) 17 Gm Powd.pack 1 Packet PO DAILY Tylenol (Acetaminophen) 325 Mg Tablet 1 Tab PO PRN Q6HRS PRN Aspirin 81 Mg Tab.chew 81 Mg PO DAILY Amlodipine Besylate 10 Mg Tablet 10 Mg PO DAILY Metoprolol Tartrate 25 Mg Tablet 25 Mg PO BID Trazodone Hcl 100 Mg Tablet 200 Mg PO HS Atorvastatin Calcium 80 Mg Tablet 80 Mg PO QHS Naprosyn (Naproxen) 500 Mg Tablet 500 Mg PO BID Trazodone Hcl 50 Mg Tablet 50 Mg PO BIDACLD I have reviewed the current psychotropics carefully including drug interactions. Risk benefit ratio favors no change other than as noted in my dictated progress note. 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
[2017-05-22] MEDS: ATORVASTATIN CALCIUM 20 MG TABLET PO SCH (20:42)
[2017-05-22] MEDS: MIRTAZAPINE 15 MG TABLET PO SCH (20:43)
[2017-05-22] MEDS: traZODone 100 MG TABLET. PO SCH (20:43)
--- NOTE | 2017-05-22 21:37 | PN ---
DATE: 05/21/2017 This is a late entry, 05/21/2017, covers the elements not covered in my initial note, 05/21/2017. SUBJECTIVE: I met with the patient in the evening of 05/21/2017. The patient slept 5-1/4 hours previous evening, somewhat drowsy during the day, takes meds crushed in pudding, confused. REVIEW OF SYSTEMS: No CV, , pulmonary, eye, ENT system symptoms on review. Reliability poor. MENTAL STATUS EXAM: Oriented to self. Insight, judgment, recent and remote memory, attention, concentration, fund of knowledge poor, consistent with his diagnosis as mentioned in my initial note. IMPRESSION: Major neurocognitive disorder, Alzheimer, vascular with delusion, depression, behavioral disturbance. PLAN: Continue psychotropics as mentioned in my initial note, we will adjust further depending on his progress. MAN Natalie HEATH MD DR: RICK/sterling JOB#: [id number] / [id number]
--- NOTE | 2017-05-22 22:17 | NUR ---
Behavior Intervention Response and Plan: BIRP Note: Behavior: Assumed Care of patient, patient located in Day Room at shift change. Patient exhibited the following behavior Wandering, Restless, Disorganized. Brief assessment on rounds of vital signs, medication needs, lab studies, and pain. Treatment plan problems Dementia W/BD and Fall Risk. Intervention: Patient assessed and the following interventions initiated safety checks 15 Minute Checks Cognitive Assessment , Medications , Oral Hydration. Response: After interactions and interventions patient responded in the following manner, Wandering , Restless ,Compliant. Continue to assess behaviors and condition will continue to monitor throughout the shift as needed. Patient educated on ADL's, and hand hygiene. 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 Continue to assess patient for changes in above assessment. Monitor for medication needs, pain, and safety concerns. Hourly rounding performed to ensure safe environment.
[2017-05-23 06:24] VITALS: BP 150/71
[2017-05-23] MEDS: ASPIRIN 81 MG TAB.CHEW PO SCH (09:23)
[2017-05-23] MEDS: amLODIPine BESYLATE 10 MG TABLET PO SCH (09:24)
[2017-05-23] MEDS: NAPROXEN 500 MG TABLET PO SCH ×2 (09:24→19:49)
[2017-05-23] MEDS: QUEtiapine 50 MG TABLET. PO SCH ×2 (09:24→12:28)
[2017-05-23] MEDS: traZODone 50 MG TABLET. PO SCH ×3 (09:25→16:16)
[2017-05-23] MEDS: METOPROLOL TART IMMED RELEASE 25 MG TABLET PO SCH ×2 (09:25→21:00)
[2017-05-23] MEDS: POLYETHYLENE GLYCOL 3350 17 GM PACKET. PO SCH (09:25)
[2017-05-23] MEDS: CHOLECALCIFEROL (VITAMIN D3) 1,000 UNIT TABLET PO SCH (09:27)
[2017-05-23] MEDS: CYANOCOBALAMIN (VITAMIN B-12) 1,000 MCG TABLET. PO SCH (09:27)
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
--- NOTE | 2017-05-23 15:00 | NUR ---
WEEKLY THERAPEUTIC RECREATION NOTE Date of Admission: 05/19/2017 Date of AT Assessment: 05/23/2017 Goal aimed: to increase his alertness and engagement Initial goal: Pt. will participate in all individual and group sensory stimulation activities. Weekly progress towards goal: NA, goal set today Group participation level: zero Behaviors observed: sleeping most of the time, hard of hearing, difficult to engage Plan: no changes to goal
--- NOTE | 2017-05-23 16:12 | NUR ---
Behavior Intervention Response and Plan: BIRP Note: Behavior: Assumed Care of patient, patient located in Day Room at shift change. Patient exhibited the following behavior Calm, Disorganized, Able to Focus on Task. Brief assessment on rounds of vital signs, medication needs, lab studies, and pain. Treatment plan problems 1-2. Intervention: Patient assessed and the following interventions initiated safety checks 15 Minute Checks Cognitive Assessment , Head to toe Assessment , Medications. Response: After interactions and interventions patient responded in the following manner, Cooperative , Compliant ,Calm. Continue to assess behaviors and condition will continue to monitor throughout the shift as needed. Patient educated on ADL's, and hand hygiene. Plan: Continue to monitor Master Treatment Plan for patient's progress toward short term goals of Decreased Agitation, Decreased Aggression, fci goals to return to previous living setting vs placement. Continue to assess patient for changes in above assessment. Monitor for medication needs, pain, and safety concerns. Hourly rounding performed to ensure safe environment.
[2017-05-23] MEDS: QUEtiapine 100 MG TABLET. PO SCH ×2 (16:16→19:48)
[2017-05-23 16:23] VITALS: BP 104/64
--- NOTE | 2017-05-23 19:37 | PN ---
DATE: 05/22/2017 PSYCHIATRIC PROGRESS NOTE This is a late entry of 05/22/2017 covers elements not covered in my initial note of 05/22/2017. I met with the patient in the evening of 05/22/2017. HISTORY OF PRESENT ILLNESS: The patient slept 2-1/4 hours previous evening. He is less drowsy, quite slow in his reactions, disorganized, resistive to toileting. REVIEW OF SYSTEMS: No CV, , pulmonary, eye, ENT system symptoms on review. Reliability poor. MENTAL STATUS EXAM: Oriented to himself. Insight, judgment, recent and remote memory, attention, concentration, fund of knowledge poor, consistent with his diagnosis mentioned in my initial note. IMPRESSION: Major neurocognitive disorder, Alzheimer, vascular with depression, delusion, behavioral disturbance. Rest unchanged. PLAN: Increase Remeron to 15 mg p.o. at bedtime to help with insomnia and anxiety. Continue rest unchanged per initial note. GENARO HEATH MD DR: RICK/sterling JOB#: [id number] / [id number]
[2017-05-23] MEDS: MIRTAZAPINE 15 MG TABLET PO SCH (19:48)
[2017-05-23] MEDS: ATORVASTATIN CALCIUM 20 MG TABLET PO SCH (19:50)
[2017-05-23] MEDS: traZODone 100 MG TABLET. PO SCH (19:50)
--- NOTE | 2017-05-23 19:59 | PDOC ---
Exam Note: Eric Note: Please also refer to the separate dictated note~for this date of service dictated separately.~Patient seen individually. Discussed the patient with Nursing staff reviewed the chart.~Reviewed interim history and current functioning. Reviewed vital signs,~Labs/ Radiology~and current medications noted below. Continue current treatment with the changes noted in the dictated addendum note Assessment: Vital Signs: Vital Signs Date Time Temp Pulse Resp B/P (MAP) Pulse Ox O2 Delivery O2 Flow Rate FiO2 05/23/17 16:23 97.7 58 20 104/64 (77) 97 05/19/17 15:40 Room Air I&O Intake and Output 05/23/17 07:00 Intake Total 1080 ml Balance 1080 ml Intake Oral 1080 ml # Voids 1 Current Medications: Meds: Current Medications Multi-Ingredient Ointment (Analgesic Flora) 1 salma PRN QID PRN TP MUSCLE PAIN; Start 05/19/17 at 16:45 Amlodipine Besylate (Norvasc) 10 mg DAILY PO Last administered on 05/23/17 09: 24; Start 05/20/17 at 09:00 Aspirin (Children'S Aspirin) 81 mg DAILY PO Last administered on 05/23/17 09:23 ; Start 05/20/17 at 09:00 Al Hydroxide/Mg Hydroxide (Mylanta Plus Xs) 30 ml Q6HRS PO ; Start 05/19/17 at 18 :00; Stop 05/19/17 at 19:45; Status DC Metoprolol Tartrate (Lopressor) 25 mg BID PO Last administered on 05/23/17at 09: 25; Start 05/19/17 at 21:00 Naproxen (Naprosyn) 500 mg BID PO Last administered on 05/23/17at 19:49; Start at 21:00 Trazodone HCl (Desyrel) 50 mg BIDACLD PO Last administered on 05/23/17 16:16; Start 05/20/17 at 11:30 Trazodone HCl (Desyrel) 200 mg HS PO Last administered on 05/23/17 19:50; Start 05/19/17 at 21:00 Atorvastatin Calcium (Lipitor) 80 mg QHS PO Last administered on 05/23/17 19:50 ; Start 05/19/17 at 21:00 Magnesium Hydroxide (Milk Of Magnesia) 2,400 mg Q6HRS PO ; Start 05/19/17 at 18: 00; Stop 05/20/17 at 01:23; Status DC Acetaminophen (Tylenol) 325 mg PRN Q6HRS PRN PO PAIN; Start 05/19/17 at 17:30 Polyethylene Glycol (miraLAX) 17 gm DAILY PO Last administered on 05/23/17 09: 25; Start 05/20/17 at 09:00 Quetiapine Fumarate (SEROquel) 50 mg BIDACBL PO Last administered on 05/23/17 12:28; Start 05/20/17 at 07:30 Quetiapine Fumarate (SEROquel) 100 mg DAILY16 PO Last administered on 05/23/17 16:16; Start 05/20/17 at 16:00 Quetiapine Fumarate (SEROquel) 100 mg HS PO Last administered on 05/23/17 19:48 ; Start 05/19/17 at 21:00 Trazodone HCl (Desyrel) 25 mg DAILY PO Last administered on 05/23/17 09:25; Start 05/20/17 at 09:00 Lorazepam (Ativan) 1 mg PRN Q4HRS PRN PO ANXIETY / AGITATION Last administered on 05/22/17 00:21; Start 05/19/17 at 17:30 Olanzapine (ZyPREXA ZYDIS) 5 mg PRN Q4HRS PRN PO ANXIETY / AGITATION Last administered on 05/21/17 23:09; Start 05/19/17 at 17:45 Al Hydroxide/Mg Hydroxide (Mylanta Plus Xs) 30 ml PRN Q6HRS PRN PO CONSTIPATION ; Start 05/20/17 at 18:00 Magnesium Hydroxide (Milk Of Magnesia) 2,400 mg PRN Q6HRS PRN PO CONSTIPATION Last administered on 05/20/17 10:07; Start 05/20/17 at 01:30 Mirtazapine (Remeron) 7.5 mg QHS PO Last administered on 05/21/17 19:50; Start 05/20/17 at 21:00; Stop 05/22/17 at 18:07; Status DC Vitamin D (Vitamin D3) 2,000 unit DAILY PO Last administered on 05/23/17 09:27 ; Start 05/23/17 at 09:00 Cyanocobalamin (Vitamin B-12) 1,000 mcg DAILY PO Last administered on 05/23/17at 09:27; Start 05/23/17 at 09:00 Mirtazapine (Remeron) 15 mg QHS PO Last administered on 05/23/17at 19:48; Start 05/22/17 at 21:00 Active Scripts Active Reported Seroquel (Quetiapine Fumarate) 100 Mg Tablet 100 Mg PO HS Seroquel (Quetiapine Fumarate) 100 Mg Tablet 100 Mg PO DAILY16 Trazodone Hcl 50 Mg Tablet 25 Mg PO DAILY Lorazepam 1 Mg Tablet 1 Mg PO PRN Q4HRS PRN Seroquel (Quetiapine Fumarate) 100 Mg Tablet 50 Mg PO BIDACBL Mi Acid Suspension (Mag Hydrox/Al Hydrox/Simeth) 355 Ml Oral.susp 30 Ml PO PRN Q6HRS Milk Of Magnesia (Magnesium Hydroxide) 2,400 Mg/10 Ml Oral.susp 30 Ml PO PRN Q6HRS PRN Miralax (Polyethylene Glycol 3350) 17 Gm Powd.pack 1 Packet PO DAILY Tylenol (Acetaminophen) 325 Mg Tablet 1 Tab PO PRN Q6HRS PRN Aspirin 81 Mg Tab.chew 81 Mg PO DAILY Amlodipine Besylate 10 Mg Tablet 10 Mg PO DAILY Metoprolol Tartrate 25 Mg Tablet 25 Mg PO BID Trazodone Hcl 100 Mg Tablet 200 Mg PO HS Atorvastatin Calcium 80 Mg Tablet 80 Mg PO QHS Naprosyn (Naproxen) 500 Mg Tablet 500 Mg PO BID Trazodone Hcl 50 Mg Tablet 50 Mg PO BIDACLD I have reviewed the current psychotropics carefully including drug interactions. Risk benefit ratio favors no change other than as noted in my dictated progress note. Diagnosis: Problems: (1) Medical clearance for psychiatric admission (2) Anxiety disorder (3) Dementia in Alzheimer's disease with delusions (4) Dementia in Alzheimer's disease with depression (5) Dementia, vascular, with delusions (6) Dementia, vascular, with depression (7) Impulse control disorder GENARO HEATH MD May 23, 2017 19:59
--- NOTE | 2017-05-23 21:35 | NUR ---
Behavior Intervention Response and Plan: BIRP Note: Behavior: Assumed Care of patient, patient located in Day Room at shift change. Patient exhibited the following behavior Wandering, Exit Seeking, Disorganized. Brief assessment on rounds of vital signs, medication needs, lab studies, and pain. Treatment plan problems Dementia W/BD and Fall Risk. Intervention: Patient assessed and the following interventions initiated safety checks 15 Minute Checks Cognitive Assessment , Medications , Nutrition. Response: After interactions and interventions patient responded in the following manner, Restless , Wandering ,Disorganized. Continue to assess behaviors and condition will continue to monitor throughout the shift as needed. Patient educated on ADL's, and hand hygiene. Plan: Continue to monitor Master Treatment Plan for patient's progress toward short term goals of Decreased Agitation, Decreased Anxiety, fci goals to return to previous living setting vs placement. Continue to assess patient for changes in above assessment. Monitor for medication needs, pain, and safety concerns. Hourly rounding performed to ensure safe environment.
[2017-05-24 06:17] VITALS: BP 147/78
[2017-05-24] MEDS: QUEtiapine 50 MG TABLET. PO SCH ×2 (07:44→11:33)
[2017-05-24] MEDS: ASPIRIN 81 MG TAB.CHEW PO SCH (07:55)
[2017-05-24] MEDS: CYANOCOBALAMIN (VITAMIN B-12) 1,000 MCG TABLET. PO SCH (07:55)
[2017-05-24] MEDS: POLYETHYLENE GLYCOL 3350 17 GM PACKET. PO SCH (07:55)
[2017-05-24] MEDS: NAPROXEN 500 MG TABLET PO SCH ×2 (07:56→19:49)
[2017-05-24] MEDS: traZODone 50 MG TABLET. PO SCH ×2 (07:57→11:33)
[2017-05-24] MEDS: METOPROLOL TART IMMED RELEASE 25 MG TABLET PO SCH ×2 (08:02→20:01)
[2017-05-24] MEDS: CHOLECALCIFEROL (VITAMIN D3) 1,000 UNIT TABLET PO SCH (08:02)
[2017-05-24] MEDS: amLODIPine BESYLATE 10 MG TABLET PO SCH (08:03)
--- NOTE | 2017-05-24 15:46 | NUR ---
Behavior Intervention Response and Plan: BIRP Note: Behavior: Assumed Care of patient, patient located in Dining Room at shift change. Patient exhibited the following behavior Disorganized, Calm, Compliant. Brief assessment on rounds of vital signs, medication needs, lab studies, and pain. Treatment plan problems 1-2. Intervention: Patient assessed and the following interventions initiated safety checks 15 Minute Checks Cognitive Assessment , Head to toe Assessment , Medications. Response: After interactions and interventions patient responded in the following manner, Cooperative , Restless ,Delusions. Continue to assess behaviors and condition will continue to monitor throughout the shift as needed. Patient educated on ADL's, and hand hygiene. 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 Continue to assess patient for changes in above assessment. Monitor for medication needs, pain, and safety concerns. Hourly rounding performed to ensure safe environment.
[2017-05-24] MEDS: QUEtiapine 100 MG TABLET. PO SCH ×2 (16:10→19:50)
[2017-05-24 16:20] VITALS: BP 94/57
[2017-05-24] MEDS: DIVALPROEX 125 MG CAP.SPRINK PO SCH (16:25)
[2017-05-24] MEDS ORDERED: traZODone 50 MG TABLET. PO SCH (16:30)
[2017-05-24] MEDS: traZODone 100 MG TABLET. PO SCH (19:49)
[2017-05-24] MEDS: ATORVASTATIN CALCIUM 20 MG TABLET PO SCH (19:49)
[2017-05-24] MEDS: MIRTAZAPINE 15 MG TABLET PO SCH (19:50)
--- NOTE | 2017-05-24 20:03 | PDOC ---
Exam Note: Eric Note: Please also refer to the separate dictated note~for this date of service dictated separately.~Patient seen individually. Discussed the patient with Nursing staff reviewed the chart.~Reviewed interim history and current functioning. Reviewed vital signs,~Labs/ Radiology~and current medications noted below. Continue current treatment with the changes noted in the dictated addendum note Assessment: Vital Signs: Vital Signs Date Time Temp Pulse Resp B/P (MAP) Pulse Ox O2 Delivery O2 Flow Rate FiO2 05/24/17 20:01 78 129/75 05/24/17 16:20 98.1 17 96 05/19/17 15:40 Room Air I&O Intake and Output 05/24/17 07:00 Intake Total 720 ml Balance 720 ml Intake Oral 720 ml # Voids 1 Current Medications: Meds: Current Medications Multi-Ingredient Ointment (Analgesic Doyle) 1 salma PRN QID PRN TP MUSCLE PAIN; Start 05/19/17 at 16:45 Amlodipine Besylate (Norvasc) 10 mg DAILY PO Last administered on 05/24/17 08: 03; Start 05/20/17 at 09:00 Aspirin (Children'S Aspirin) 81 mg DAILY PO Last administered on 05/24/17at 07:55 ; Start 05/20/17 at 09:00 Al Hydroxide/Mg Hydroxide (Mylanta Plus Xs) 30 ml Q6HRS PO ; Start 05/19/17 at 18 :00; Stop 05/19/17 at 19:45; Status DC Metoprolol Tartrate (Lopressor) 25 mg BID PO Last administered on 05/24/17 20: 01; Start 05/19/17 at 21:00 Naproxen (Naprosyn) 500 mg BID PO Last administered on 05/24/17 19:49; Start at 21:00 Trazodone HCl (Desyrel) 50 mg BIDACLD PO Last administered on 05/24/17 11:33; Start 05/20/17 at 11:30; Stop 05/24/17 at 12:27; Status DC Trazodone HCl (Desyrel) 200 mg HS PO Last administered on 05/24/17 19:49; Start 05/19/17 at 21:00 Atorvastatin Calcium (Lipitor) 80 mg QHS PO Last administered on 3/8/18at 19:49 ; Start 05/19/17 at 21:00 Magnesium Hydroxide (Milk Of Magnesia) 2,400 mg Q6HRS PO ; Start 05/19/17 at 18: 00; Stop 05/20/17 at 01:23; Status DC Acetaminophen (Tylenol) 325 mg PRN Q6HRS PRN PO PAIN; Start 05/19/17 at 17:30 Polyethylene Glycol (miraLAX) 17 gm DAILY PO Last administered on 05/24/17 07: 55; Start 05/20/17 at 09:00 Quetiapine Fumarate (SEROquel) 50 mg BIDACBL PO Last administered on 05/24/17 11:33; Start 05/20/17 at 07:30 Quetiapine Fumarate (SEROquel) 100 mg DAILY16 PO Last administered on 05/24/17 16:10; Start 05/20/17 at 16:00 Quetiapine Fumarate (SEROquel) 100 mg HS PO Last administered on 05/24/17 19:50 ; Start 05/19/17 at 21:00 Trazodone HCl (Desyrel) 25 mg DAILY PO Last administered on 05/24/17 07:57; Start 05/20/17 at 09:00; Stop 05/24/17 at 19:40; Status DC Lorazepam (Ativan) 1 mg PRN Q4HRS PRN PO ANXIETY / AGITATION Last administered on 05/22/17at 00:21; Start 05/19/17 at 17:30 Olanzapine (ZyPREXA ZYDIS) 5 mg PRN Q4HRS PRN PO ANXIETY / AGITATION Last administered on 05/21/17 23:09; Start 05/19/17 at 17:45 Al Hydroxide/Mg Hydroxide (Mylanta Plus Xs) 30 ml PRN Q6HRS PRN PO CONSTIPATION ; Start 05/20/17 at 18:00 Magnesium Hydroxide (Milk Of Magnesia) 2,400 mg PRN Q6HRS PRN PO CONSTIPATION Last administered on 05/20/17 10:07; Start 05/20/17 at 01:30 Mirtazapine (Remeron) 7.5 mg QHS PO Last administered on 05/21/17 19:50; Start 05/20/17 at 21:00; Stop 05/22/17 at 18:07; Status DC Vitamin D (Vitamin D3) 2,000 unit DAILY PO Last administered on 05/24/17at 08:02 ; Start 05/23/17 at 09:00 Cyanocobalamin (Vitamin B-12) 1,000 mcg DAILY PO Last administered on 05/24/17at 07:55; Start 05/23/17 at 09:00 Mirtazapine (Remeron) 15 mg QHS PO Last administered on 05/24/17at 19:50; Start 05/22/17 at 21:00 Trazodone HCl (Desyrel) 25 mg BIDACLD PO Last administered on 05/24/17at 16:25; Start 05/24/17 at 16:30; Stop 05/24/17 at 19:40; Status DC Divalproex Sodium (Depakote Sprinkles) 125 mg BID@0900,1700 PO Last administered on 05/24/17at 16:25; Start 05/24/17 at 17:00 Trazodone HCl (Desyrel) 25 mg TIDWMEALS PO ; Start 05/25/17 at 08:00 Active Scripts Active Reported Seroquel (Quetiapine Fumarate) 100 Mg Tablet 100 Mg PO HS Seroquel (Quetiapine Fumarate) 100 Mg Tablet 100 Mg PO DAILY16 Trazodone Hcl 50 Mg Tablet 25 Mg PO DAILY Lorazepam 1 Mg Tablet 1 Mg PO PRN Q4HRS PRN Seroquel (Quetiapine Fumarate) 100 Mg Tablet 50 Mg PO BIDACBL Mi Acid Suspension (Mag Hydrox/Al Hydrox/Simeth) 355 Ml Oral.susp 30 Ml PO PRN Q6HRS Milk Of Magnesia (Magnesium Hydroxide) 2,400 Mg/10 Ml Oral.susp 30 Ml PO PRN Q6HRS PRN Miralax (Polyethylene Glycol 3350) 17 Gm Powd.pack 1 Packet PO DAILY Tylenol (Acetaminophen) 325 Mg Tablet 1 Tab PO PRN Q6HRS PRN Aspirin 81 Mg Tab.chew 81 Mg PO DAILY Amlodipine Besylate 10 Mg Tablet 10 Mg PO DAILY Metoprolol Tartrate 25 Mg Tablet 25 Mg PO BID Trazodone Hcl 100 Mg Tablet 200 Mg PO HS Atorvastatin Calcium 80 Mg Tablet 80 Mg PO QHS Naprosyn (Naproxen) 500 Mg Tablet 500 Mg PO BID Trazodone Hcl 50 Mg Tablet 50 Mg PO BIDACLD I have reviewed the current psychotropics carefully including drug interactions. Risk benefit ratio favors no change other than as noted in my dictated progress note. Diagnosis: Problems: (1) Medical clearance for psychiatric admission (2) Anxiety disorder (3) Dementia in Alzheimer's disease with delusions (4) Dementia in Alzheimer's disease with depression (5) Dementia, vascular, with delusions (6) Dementia, vascular, with depression (7) Impulse control disorder GENARO HETAH MD May 24, 2017 20:03
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
--- NOTE | 2017-05-25 03:27 | NUR ---
Behavior Intervention Response and Plan: BIRP Note: Behavior: Assumed Care of patient, patient located in Hallway at shift change. Patient exhibited the following behavior Restless, Irritable, Agitated. Brief assessment on rounds of vital signs, medication needs, lab studies, and pain. Treatment plan problems Dementia with BD and Fall Risk. Intervention: Patient assessed and the following interventions initiated safety checks 15 Minute Checks Cognitive Assessment , Head to toe Assessment , Medications. Response: After interactions and interventions patient responded in the following manner, Combative , Angry, Hostile. Continue to assess behaviors and condition will continue to monitor throughout the shift as needed. Patient educated on ADL's, and hand hygiene. 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 Continue to assess patient for changes in above assessment. Monitor for medication needs, pain, and safety concerns. Hourly rounding performed to ensure safe environment.
[2017-05-25 06:18] VITALS: BP 109/69
[2017-05-25] MEDS: QUEtiapine 50 MG TABLET. PO SCH ×2 (07:51→11:30)
[2017-05-25] MEDS: traZODone 50 MG TABLET. PO SCH ×3 (07:56→16:35)
[2017-05-25] MEDS: NAPROXEN 500 MG TABLET PO SCH ×2 (09:12→19:44)
[2017-05-25] MEDS: CYANOCOBALAMIN (VITAMIN B-12) 1,000 MCG TABLET. PO SCH (09:12)
[2017-05-25] MEDS: POLYETHYLENE GLYCOL 3350 17 GM PACKET. PO SCH (09:12)
[2017-05-25] MEDS: amLODIPine BESYLATE 10 MG TABLET PO SCH (09:13)
[2017-05-25] MEDS: METOPROLOL TART IMMED RELEASE 25 MG TABLET PO SCH ×2 (09:13→19:44)
[2017-05-25] MEDS: CHOLECALCIFEROL (VITAMIN D3) 1,000 UNIT TABLET PO SCH (09:13)
[2017-05-25] MEDS: ASPIRIN 81 MG TAB.CHEW PO SCH (09:13)
[2017-05-25] MEDS: DIVALPROEX 125 MG CAP.SPRINK PO SCH ×2 (09:13→16:34)
--- NOTE | 2017-05-25 11:36 | NUR ---
It was reported to this nurse that pt did not sleep well last night. Pt was left sleeping in bed until pt woke up around 1115. Pt was placed in a wheelchair d/t risk for fall r/t being unsteady on his feet. Pt was taken out to the day room and given a yogurt along with his AM medications. Pts afternoon medications were held was held since pt had just received his morning medication. Will continue to monitor.
--- NOTE | 2017-05-25 15:38 | NUR ---
Behavior Intervention Response and Plan: BIRP Note: Behavior: Assumed Care of patient, patient located in Day Room at shift change. Patient exhibited the following behavior Calm, Disorganized, Compliant. Brief assessment on rounds of vital signs, medication needs, lab studies, and pain. Treatment plan problems 1-2. Intervention: Patient assessed and the following interventions initiated safety checks 15 Minute Checks Cognitive Assessment , Head to toe Assessment , Medications. Response: After interactions and interventions patient responded in the following manner, Drowsy , Disorganized ,Cooperative. Continue to assess behaviors and condition will continue to monitor throughout the shift as needed. Patient educated on ADL's, and hand hygiene. Plan: Continue to monitor Master Treatment Plan for patient's progress toward short term goals of Decreased Aggression, Decreased Agitation, snf goals to return to previous living setting vs placement. Continue to assess patient for changes in above assessment. Monitor for medication needs, pain, and safety concerns. Hourly rounding performed to ensure safe environment.
[2017-05-25] MEDS: QUEtiapine 100 MG TABLET. PO SCH ×2 (16:07→19:45)
[2017-05-25 16:31] VITALS: BP 136/71
[2017-05-25] MEDS: ATORVASTATIN CALCIUM 20 MG TABLET PO SCH (19:44)
[2017-05-25] MEDS: traZODone 100 MG TABLET. PO SCH (19:44)
[2017-05-25] MEDS: MIRTAZAPINE 15 MG TABLET PO SCH (19:44)
--- NOTE | 2017-05-25 20:00 | PDOC ---
Exam Note: Eric Note: Please also refer to the separate dictated note~for this date of service dictated separately.~Patient seen individually. Discussed the patient with Nursing staff reviewed the chart.~Reviewed interim history and current functioning. Reviewed vital signs,~Labs/ Radiology~and current medications noted below. Continue current treatment with the changes noted in the dictated addendum note Assessment: Vital Signs: Vital Signs Date Time Temp Pulse Resp B/P (MAP) Pulse Ox O2 Delivery O2 Flow Rate FiO2 05/25/17 19:44 60 136/71 05/25/17 16:31 97.6 16 94 05/19/17 15:40 Room Air I&O Intake and Output 05/25/17 07:00 Intake Total 1200 ml Balance 1200 ml Intake Oral 1200 ml # Voids 2 Current Medications: Meds: Current Medications Multi-Ingredient Ointment (Analgesic [place]) 1 salma PRN QID PRN TP MUSCLE PAIN; Start 05/19/17 at 16:45 Amlodipine Besylate (Norvasc) 10 mg DAILY PO Last administered on 05/25/17 09: 13; Start 05/20/17 at 09:00 Aspirin (Children'S Aspirin) 81 mg DAILY PO Last administered on 05/25/17at 09:13 ; Start 05/20/17 at 09:00 Al Hydroxide/Mg Hydroxide (Mylanta Plus Xs) 30 ml Q6HRS PO ; Start 05/19/17 at 18 :00; Stop 05/19/17 at 19:45; Status DC Metoprolol Tartrate (Lopressor) 25 mg BID PO Last administered on 05/25/17 19: 44; Start 05/19/17 at 21:00 Naproxen (Naprosyn) 500 mg BID PO Last administered on 05/25/17 19:44; Start at 21:00 Trazodone HCl (Desyrel) 50 mg BIDACLD PO Last administered on 05/24/17 11:33; Start 05/20/17 at 11:30; Stop 05/24/17 at 12:27; Status DC Trazodone HCl (Desyrel) 200 mg HS PO Last administered on 05/25/17 19:44; Start 05/19/17 at 21:00 Atorvastatin Calcium (Lipitor) 80 mg QHS PO Last administered on 3/9/18at 19:44 ; Start 05/19/17 at 21:00 Magnesium Hydroxide (Milk Of Magnesia) 2,400 mg Q6HRS PO ; Start 05/19/17 at 18: 00; Stop 05/20/17 at 01:23; Status DC Acetaminophen (Tylenol) 325 mg PRN Q6HRS PRN PO PAIN; Start 05/19/17 at 17:30 Polyethylene Glycol (miraLAX) 17 gm DAILY PO Last administered on 05/25/17 09: 12; Start 05/20/17 at 09:00 Quetiapine Fumarate (SEROquel) 50 mg BIDACBL PO Last administered on 05/25/17 07:51; Start 05/20/17 at 07:30 Quetiapine Fumarate (SEROquel) 100 mg DAILY16 PO Last administered on 05/25/17 16:07; Start 05/20/17 at 16:00 Quetiapine Fumarate (SEROquel) 100 mg HS PO Last administered on 05/25/17 19:45 ; Start 05/19/17 at 21:00 Trazodone HCl (Desyrel) 25 mg DAILY PO Last administered on 05/24/17 07:57; Start 05/20/17 at 09:00; Stop 05/24/17 at 19:40; Status DC Lorazepam (Ativan) 1 mg PRN Q4HRS PRN PO ANXIETY / AGITATION Last administered on 05/22/17at 00:21; Start 05/19/17 at 17:30 Olanzapine (ZyPREXA ZYDIS) 5 mg PRN Q4HRS PRN PO ANXIETY / AGITATION Last administered on 05/24/17at 20:45; Start 05/19/17 at 17:45 Al Hydroxide/Mg Hydroxide (Mylanta Plus Xs) 30 ml PRN Q6HRS PRN PO CONSTIPATION ; Start 05/20/17 at 18:00 Magnesium Hydroxide (Milk Of Magnesia) 2,400 mg PRN Q6HRS PRN PO CONSTIPATION Last administered on 05/20/17 10:07; Start 05/20/17 at 01:30 Mirtazapine (Remeron) 7.5 mg QHS PO Last administered on 05/21/17 19:50; Start 05/20/17 at 21:00; Stop 05/22/17 at 18:07; Status DC Vitamin D (Vitamin D3) 2,000 unit DAILY PO Last administered on 05/25/17at 09:13 ; Start 05/23/17 at 09:00 Cyanocobalamin (Vitamin B-12) 1,000 mcg DAILY PO Last administered on 05/25/17at 09:12; Start 05/23/17 at 09:00 Mirtazapine (Remeron) 15 mg QHS PO Last administered on 05/25/17at 19:44; Start 05/22/17 at 21:00 Trazodone HCl (Desyrel) 25 mg BIDACLD PO Last administered on 05/24/17at 16:25; Start 05/24/17 at 16:30; Stop 05/24/17 at 19:40; Status DC Divalproex Sodium (Depakote Sprinkles) 125 mg BID@0900,1700 PO Last administered on 05/25/17at 16:34; Start 05/24/17 at 17:00 Trazodone HCl (Desyrel) 25 mg TIDWMEALS PO Last administered on 05/25/17at 16:35 ; Start 05/25/17 at 08:00; Stop 05/25/17 at 18:48; Status DC Trazodone HCl (Desyrel) 12.5 mg TIDWMEALS PO ; Start 05/26/17 at 08:00 Active Scripts Active Reported Seroquel (Quetiapine Fumarate) 100 Mg Tablet 100 Mg PO HS Seroquel (Quetiapine Fumarate) 100 Mg Tablet 100 Mg PO DAILY16 Trazodone Hcl 50 Mg Tablet 25 Mg PO DAILY Lorazepam 1 Mg Tablet 1 Mg PO PRN Q4HRS PRN Seroquel (Quetiapine Fumarate) 100 Mg Tablet 50 Mg PO BIDACBL Mi Acid Suspension (Mag Hydrox/Al Hydrox/Simeth) 355 Ml Oral.susp 30 Ml PO PRN Q6HRS Milk Of Magnesia (Magnesium Hydroxide) 2,400 Mg/10 Ml Oral.susp 30 Ml PO PRN Q6HRS PRN Miralax (Polyethylene Glycol 3350) 17 Gm Powd.pack 1 Packet PO DAILY Tylenol (Acetaminophen) 325 Mg Tablet 1 Tab PO PRN Q6HRS PRN Aspirin 81 Mg Tab.chew 81 Mg PO DAILY Amlodipine Besylate 10 Mg Tablet 10 Mg PO DAILY Metoprolol Tartrate 25 Mg Tablet 25 Mg PO BID Trazodone Hcl 100 Mg Tablet 200 Mg PO HS Atorvastatin Calcium 80 Mg Tablet 80 Mg PO QHS Naprosyn (Naproxen) 500 Mg Tablet 500 Mg PO BID Trazodone Hcl 50 Mg Tablet 50 Mg PO BIDACLD I have reviewed the current psychotropics carefully including drug interactions. Risk benefit ratio favors no change other than as noted in my dictated progress note. Diagnosis: Problems: (1) Medical clearance for psychiatric admission (2) Anxiety disorder (3) Dementia in Alzheimer's disease with delusions (4) Dementia in Alzheimer's disease with depression (5) Dementia, vascular, with delusions (6) Dementia, vascular, with depression (7) Impulse control disorder GENARO HEATH MD May 25, 2017 20:00
--- NOTE | 2017-05-25 21:27 | PN ---
DATE: 05/23/2017 This late entry of 05/23/2017 covers the elements not covered in my initial note 05/23/2017. SUBJECTIVE: I met with the patient evening of 05/23/2017. The patient was quite restless previous evening, intrusive, takes his medications crushed in ice-cream. Slept 5 hours. Slept until 9:00 a.m. on 05/23/2017. Using the walker. Takes his medications whole. REVIEW OF SYSTEMS: No CV, , pulmonary, eye, ENT system symptoms on review. Reliability poor. MENTAL STATUS EXAM: Oriented to himself. Insight, judgment, recent and remote memory, attention, concentration, fund of knowledge poor, consistent with his diagnosis mentioned in my initial note. IMPRESSION: Major neurocognitive disorder, Alzheimer, vascular with depression, delusion, behavioral disturbance. PLAN: Continue psychotropics mentioned in my initial note. May add Depakote if mood lability, aggression resurfaces. MAN Natalie HEATH MD DR: RICK/sterling JOB#: [id number] / [id number]
--- NOTE | 2017-05-25 23:31 | PN ---
DATE: 05/24/2017 PSYCHIATRIC PROGRESS NOTE This is a late entry for 05/24/2017, covers elements not covered in my initial note of 05/24/2017. SUBJECTIVE: The patient was staffed at a treatment team meeting with the entire team the morning of 05/24/2017 and the patient's son, Haider and the entire staff from the [facility] attended the treatment team meeting. Reviewed the patient's history, diagnoses, recent failed inpatient psychiatric hospitalizations. The patient wanders into other patient's rooms, difficult to redirect, sleeping about 4-1/2 hours, appetite 80%, restless, compliant with medications. REVIEW OF SYSTEMS: Hard of hearing. No CV, , pulmonary, eye, ENT system symptoms on review. Reliability poor. MENTAL STATUS EXAM: Oriented to himself. Insight, judgment, recent and remote memory, attention, concentration, fund of knowledge poor, consistent with his diagnosis. He often sleeps off in groups. LABORATORY DATA: Reviewed. IMPRESSION: Major neurocognitive disorder, vascular, Alzheimer's with delusion, depression, behavioral disturbance. PLAN: Start trazodone, which should be reduced from 50 mg b.i.d. a.c. to 25 mg b.i.d. Start Depakote 125 mg at 9:00 a.m. and 5:00 p.m. Check CBC, CMP, valproic acid level in 3 days. Continue rest of the psychotropics. GENARO HEATH MD DR: RICK/sterling JOB#: [id number] / [id number]
--- NOTE | 2017-05-26 01:31 | NUR ---
Behavior Intervention Response and Plan: BIRP Note: Behavior: Assumed Care of patient, patient located in Hallway at shift change. Patient exhibited the following behavior Restless, Irritable, Agitated. Brief assessment on rounds of vital signs, medication needs, lab studies, and pain. Treatment plan problems Dementia with BD and Fall Risk. Intervention: Patient assessed and the following interventions initiated safety checks 15 Minute Checks Cognitive Assessment , Head to toe Assessment , Medications. Response: After interactions and interventions patient responded in the following manner, Calm, Compliant, Cooperative. Continue to assess behaviors and condition will continue to monitor throughout the shift as needed. Patient educated on ADL's, and hand hygiene. 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 Continue to assess patient for changes in above assessment. Monitor for medication needs, pain, and safety concerns. Hourly rounding performed to ensure safe environment.
[2017-05-26 07:11] VITALS: BP 98/60
[2017-05-26] MEDS: QUEtiapine 50 MG TABLET. PO SCH ×2 (07:53→12:37)
[2017-05-26] MEDS: traZODone 50 MG TABLET. PO SCH ×3 (07:55→16:47)
[2017-05-26 08:07] VITALS: BP 122/66
[2017-05-26] MEDS: DIVALPROEX 125 MG CAP.SPRINK PO SCH ×2 (08:08→16:46)
[2017-05-26] MEDS: NAPROXEN 500 MG TABLET PO SCH ×2 (08:08→19:32)
[2017-05-26] MEDS: POLYETHYLENE GLYCOL 3350 17 GM PACKET. PO SCH (08:08)
[2017-05-26] MEDS: CHOLECALCIFEROL (VITAMIN D3) 1,000 UNIT TABLET PO SCH (08:08)
[2017-05-26] MEDS: ASPIRIN 81 MG TAB.CHEW PO SCH (08:08)
[2017-05-26] MEDS: CYANOCOBALAMIN (VITAMIN B-12) 1,000 MCG TABLET. PO SCH (08:08)
[2017-05-26] MEDS: METOPROLOL TART IMMED RELEASE 25 MG TABLET PO SCH ×2 (08:09→19:33)
[2017-05-26] MEDS: amLODIPine BESYLATE 10 MG TABLET PO SCH (08:14)
[2017-05-26 16:27] VITALS: BP 105/54
--- NOTE | 2017-05-26 16:27 | NUR ---
Behavior Intervention Response and Plan: BIRP Note: Behavior: Assumed Care of patient, patient located in Dining Room at shift change. Patient exhibited the following behavior Calm, Compliant, Disorganized. Brief assessment on rounds of vital signs, medication needs, lab studies, and pain. Treatment plan problems 1-2. Intervention: Patient assessed and the following interventions initiated safety checks 15 Minute Checks Cognitive Assessment , Head to toe Assessment , Medications. Response: After interactions and interventions patient responded in the following manner, Wandering , Exit Seeking ,Delusions. Continue to assess behaviors and condition will continue to monitor throughout the shift as needed. Patient educated on ADL's, and hand hygiene. 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 Continue to assess patient for changes in above assessment. Monitor for medication needs, pain, and safety concerns. Hourly rounding performed to ensure safe environment.
[2017-05-26] MEDS: QUEtiapine 100 MG TABLET. PO SCH ×2 (16:46→19:33)
--- NOTE | 2017-05-26 18:10 | NUR ---
Pt up ad bobby, wandering in the hallways most of the day. Pt was exit seeking, checking doors as he walked by them. Pt was calm and cooperative with all medication whole and assessments. Pt was intrusive with other pts at times but was able to be successfully redirected. Pt is very disorganized and delusional. Pt stated to another staff member "I will get you all of the information you need so we can get out of this wayward house." Pt later stated "That's my " to one of the other pts when pt was told what her name was pt stated "yeah, that's my wifes name. Will continue to monitor.
[2017-05-26] MEDS: traZODone 100 MG TABLET. PO SCH (19:32)
[2017-05-26] MEDS: ATORVASTATIN CALCIUM 20 MG TABLET PO SCH (19:33)
[2017-05-26] MEDS: MIRTAZAPINE 15 MG TABLET PO SCH (19:33)
--- NOTE | 2017-05-26 20:10 | NUR ---
Nursing Note: Pt up ambulating in the bell, exit seeking stating "I need to get out of here" HS Medications administered hidden in Ice Cream at 1999, Pt continued to escalate, becoming increasingly agitated attempting to rip the hand rail off of the wall. PRN Zydis administered per PRN order hidden in Ice Cream at this time.
--- NOTE | 2017-05-26 21:15 | PDOC ---
Exam Note: Eric Note: Please also refer to the separate dictated note~for this date of service dictated separately.~Patient seen individually. Discussed the patient with Nursing staff reviewed the chart.~Reviewed interim history and current functioning. Reviewed vital signs,~Labs/ Radiology~and current medications noted below. Continue current treatment with the changes noted in the dictated addendum note Assessment: Vital Signs: Vital Signs Date Time Temp Pulse Resp B/P (MAP) Pulse Ox O2 Delivery O2 Flow Rate FiO2 05/26/17 19:33 61 110/62 05/26/17 16:27 97.4 18 96 Room Air I&O Intake and Output 05/26/17 07:00 Intake Total 600 ml Balance 600 ml Intake Oral 600 ml # Voids 3 Current Medications: Meds: Current Medications Multi-Ingredient Ointment (Analgesic [place]) 1 salma PRN QID PRN TP MUSCLE PAIN; Start 05/19/17 at 16:45 Amlodipine Besylate (Norvasc) 10 mg DAILY PO Last administered on 05/26/17at 08: 14; Start 05/20/17 at 09:00 Aspirin (Children'S Aspirin) 81 mg DAILY PO Last administered on 05/26/17at 08: 08; Start 05/20/17 at 09:00 Al Hydroxide/Mg Hydroxide (Mylanta Plus Xs) 30 ml Q6HRS PO ; Start 05/19/17 at 18 :00; Stop 05/19/17 at 19:45; Status DC Metoprolol Tartrate (Lopressor) 25 mg BID PO Last administered on 05/26/17at 19: 33; Start 05/19/17 at 21:00 Naproxen (Naprosyn) 500 mg BID PO Last administered on 05/26/17at 19:32; Start 05/19/17 at 21:00 Trazodone HCl (Desyrel) 50 mg BIDACLD PO Last administered on 05/24/17 11:33; Start 05/20/17 at 11:30; Stop 05/24/17 at 12:27; Status DC Trazodone HCl (Desyrel) 200 mg HS PO Last administered on 05/26/17 19:32; Start 05/19/17 at 21:00 Atorvastatin Calcium (Lipitor) 80 mg QHS PO Last administered on 05/26/17at 19: 33; Start 05/19/17 at 21:00 Magnesium Hydroxide (Milk Of Magnesia) 2,400 mg Q6HRS PO ; Start 05/19/17 at 18: 00; Stop 05/20/17 at 01:23; Status DC Acetaminophen (Tylenol) 325 mg PRN Q6HRS PRN PO PAIN; Start 05/19/17 at 17:30 Polyethylene Glycol (miraLAX) 17 gm DAILY PO Last administered on 05/26/17 08: 08; Start 05/20/17 at 09:00 Quetiapine Fumarate (SEROquel) 50 mg BIDACBL PO Last administered on 05/26/17 12:37; Start 05/20/17 at 07:30 Quetiapine Fumarate (SEROquel) 100 mg DAILY16 PO Last administered on 16:46; Start 05/20/17 at 16:00 Quetiapine Fumarate (SEROquel) 100 mg HS PO Last administered on 05/26/17 19: 33; Start 05/19/17 at 21:00 Trazodone HCl (Desyrel) 25 mg DAILY PO Last administered on 05/24/17 07:57; Start 05/20/17 at 09:00; Stop 05/24/17 at 19:40; Status DC Lorazepam (Ativan) 1 mg PRN Q4HRS PRN PO ANXIETY / AGITATION Last administered on 05/22/17at 00:21; Start 05/19/17 at 17:30 Olanzapine (ZyPREXA ZYDIS) 5 mg PRN Q4HRS PRN PO ANXIETY / AGITATION Last administered on 05/26/17at 20:12; Start 05/19/17 at 17:45 Al Hydroxide/Mg Hydroxide (Mylanta Plus Xs) 30 ml PRN Q6HRS PRN PO CONSTIPATION ; Start 05/20/17 at 18:00 Magnesium Hydroxide (Milk Of Magnesia) 2,400 mg PRN Q6HRS PRN PO CONSTIPATION Last administered on 05/20/17 10:07; Start 05/20/17 at 01:30 Mirtazapine (Remeron) 7.5 mg QHS PO Last administered on 05/21/17 19:50; Start 05/20/17 at 21:00; Stop 05/22/17 at 18:07; Status DC Vitamin D (Vitamin D3) 2,000 unit DAILY PO Last administered on 05/26/17 08:08 ; Start 05/23/17 at 09:00 Cyanocobalamin (Vitamin B-12) 1,000 mcg DAILY PO Last administered on 08:08; Start 05/23/17 at 09:00 Mirtazapine (Remeron) 15 mg QHS PO Last administered on 05/26/17 19:33; Start 05/22/17 at 21:00 Trazodone HCl (Desyrel) 25 mg BIDACLD PO Last administered on 05/24/17 16:25; Start 05/24/17 at 16:30; Stop 05/24/17 at 19:40; Status DC Divalproex Sodium (Depakote Sprinkles) 125 mg BID@0900,1700 PO Last administered on 05/26/17 16:46; Start 05/24/17 at 17:00 Trazodone HCl (Desyrel) 25 mg TIDWMEALS PO Last administered on 05/25/17at 16:35 ; Start 05/25/17 at 08:00; Stop 05/25/17 at 18:48; Status DC Trazodone HCl (Desyrel) 12.5 mg TIDWMEALS PO Last administered on 05/26/17 16: 47; Start 05/26/17 at 08:00 Active Scripts Active Reported Seroquel (Quetiapine Fumarate) 100 Mg Tablet 100 Mg PO HS Seroquel (Quetiapine Fumarate) 100 Mg Tablet 100 Mg PO DAILY16 Trazodone Hcl 50 Mg Tablet 25 Mg PO DAILY Lorazepam 1 Mg Tablet 1 Mg PO PRN Q4HRS PRN Seroquel (Quetiapine Fumarate) 100 Mg Tablet 50 Mg PO BIDACBL Mi Acid Suspension (Mag Hydrox/Al Hydrox/Simeth) 355 Ml Oral.susp 30 Ml PO PRN Q6HRS Milk Of Magnesia (Magnesium Hydroxide) 2,400 Mg/10 Ml Oral.susp 30 Ml PO PRN Q6HRS PRN Miralax (Polyethylene Glycol 3350) 17 Gm Powd.pack 1 Packet PO DAILY Tylenol (Acetaminophen) 325 Mg Tablet 1 Tab PO PRN Q6HRS PRN Aspirin 81 Mg Tab.chew 81 Mg PO DAILY Amlodipine Besylate 10 Mg Tablet 10 Mg PO DAILY Metoprolol Tartrate 25 Mg Tablet 25 Mg PO BID Trazodone Hcl 100 Mg Tablet 200 Mg PO HS Atorvastatin Calcium 80 Mg Tablet 80 Mg PO QHS Naprosyn (Naproxen) 500 Mg Tablet 500 Mg PO BID Trazodone Hcl 50 Mg Tablet 50 Mg PO BIDACLD I have reviewed the current psychotropics carefully including drug interactions. Risk benefit ratio favors no change other than as noted in my dictated progress note. Diagnosis: Problems: (1) Medical clearance for psychiatric admission (2) Anxiety disorder (3) Dementia in Alzheimer's disease with delusions (4) Dementia in Alzheimer's disease with depression (5) Dementia, vascular, with delusions (6) Dementia, vascular, with depression (7) Impulse control disorder GENARO HEATH MD May 26, 2017 21:15
--- NOTE | 2017-05-26 23:53 | NUR ---
Behavior Intervention Response and Plan: BIRP Note: Behavior: Assumed Care of patient, patient located in Hallway at shift change. Patient exhibited the following behavior Restless, Irritable, Exit Seeking. Brief assessment on rounds of vital signs, medication needs, lab studies, and pain. Treatment plan problems Dementia with BD and Fall Risk. Intervention: Patient assessed and the following interventions initiated safety checks 15 Minute Checks Cognitive Assessment , Head to toe Assessment , Medications. Response: After interactions and interventions patient responded in the following manner, Calm, Compliant, Cooperative. Continue to assess behaviors and condition will continue to monitor throughout the shift as needed. Patient educated on ADL's, and hand hygiene. Plan: Continue to monitor Master Treatment Plan for patient's progress toward short term goals of Decreased Agitation, Decreased Aggression, half-way goals to return to previous living setting vs placement. Continue to assess patient for changes in above assessment. Monitor for medication needs, pain, and safety concerns. Hourly rounding performed to ensure safe environment.
[2017-05-27 06:28] VITALS: BP 113/49
[2017-05-27 07:29] LABS: BASO % 1 % (0-3); EOS # 0.2 x10^3/uL (0.0-0.7); EOS % 3 % (0-3); HEMATOCRIT 35.9 % (39.0-53.0); HEMOGLOBIN 12.2 g/dL (13.0-17.5); LYMPH # 2.1 x10^3/uL (1.0-4.8); LYMPH % 26 % (24-48); MEAN CORPUSCULAR HEMOGLOBIN 30 pg (25-35); MEAN CORPUSCULAR HGB CONC 34 g/dL (31-37); MEAN CORPUSCULAR VOLUME 89 fL (79-100); MONO % 12 % (0-9); NEUT # 4.8 x10^3uL (1.8-7.7); NEUT % 60 % (31-73); PLATELET COUNT 178 x10^3/uL (140-400); RED BLOOD COUNT 4.02 x10^6/uL (4.30-5.70); RED CELL DISTRIBUTION WIDTH 13.9 % (11.5-14.5); WHITE BLOOD COUNT 8.1 x10^3/uL (4.0-11.0)
[2017-05-27 07:58] LABS: ALBUMIN 3.4 g/dL (3.4-5.0); ALBUMIN/GLOBULIN RATIO 1.1 (1.0-1.7); ALK PHOS 77 U/L (46-116); ALT (SGPT) 25 U/L (16-63); ANION GAP 7 (6-14); AST (SGOT) 29 U/L (15-37); BLOOD UREA NITROGEN 39 mg/dL (8-26); BUN/CREATININE RATIO 30 (6-20); CARBON DIOXIDE 26 mmol/L (21-32); CHLORIDE 108 mmol/L (98-107); CREATININE 1.3 mg/dL (0.7-1.3); GFR 52.6; GLUCOSE 87 mg/dL (70-99); POTASSIUM 4.8 mmol/L (3.5-5.1); SODIUM 141 mmol/L (136-145); TOTAL BILIRUBIN 0.6 mg/dL (0.2-1.0); TOTAL PROTEIN 6.4 g/dL (6.4-8.2)
[2017-05-27 07:59] LABS: VAL ACID 13 mcg/mL (50-100)
[2017-05-27 08:17] VITALS: BP 144/80
[2017-05-27] MEDS: POLYETHYLENE GLYCOL 3350 17 GM PACKET. PO SCH (08:54)
[2017-05-27] MEDS: QUEtiapine 50 MG TABLET. PO SCH ×2 (08:55→12:22)
[2017-05-27] MEDS: CYANOCOBALAMIN (VITAMIN B-12) 1,000 MCG TABLET. PO SCH (08:55)
[2017-05-27] MEDS: DIVALPROEX 125 MG CAP.SPRINK PO SCH ×2 (08:55→17:11)
[2017-05-27] MEDS: ASPIRIN 81 MG TAB.CHEW PO SCH (08:56)
[2017-05-27] MEDS: traZODone 50 MG TABLET. PO SCH ×3 (08:56→17:12)
[2017-05-27] MEDS: CHOLECALCIFEROL (VITAMIN D3) 1,000 UNIT TABLET PO SCH (08:56)
[2017-05-27] MEDS: METOPROLOL TART IMMED RELEASE 25 MG TABLET PO SCH ×2 (08:56→19:29)
[2017-05-27] MEDS: NAPROXEN 500 MG TABLET PO SCH ×2 (08:56→19:28)
[2017-05-27] MEDS: amLODIPine BESYLATE 10 MG TABLET PO SCH (08:57)
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
[2017-05-27 16:21] VITALS: BP 127/61
--- NOTE | 2017-05-27 16:35 | NUR ---
Behavior Intervention Response and Plan: BIRP Note: Behavior: Assumed Care of patient, patient located in Dining Room at shift change. Patient exhibited the following behavior Calm, Disorganized, Cooperative. Brief assessment on rounds of vital signs, medication needs, lab studies, and pain. Treatment plan problems 1-2. Intervention: Patient assessed and the following interventions initiated safety checks 15 Minute Checks Cognitive Assessment , Head to toe Assessment , Medications. Response: After interactions and interventions patient responded in the following manner, Wandering , Exit Seeking ,Cooperative. Continue to assess behaviors and condition will continue to monitor throughout the shift as needed. Patient educated on ADL's, and hand hygiene. Plan: Continue to monitor Master Treatment Plan for patient's progress toward short term goals of Decreased Agitation, Decreased Aggression, skilled nursing goals to return to previous living setting vs placement. Continue to assess patient for changes in above assessment. Monitor for medication needs, pain, and safety concerns. Hourly rounding performed to ensure safe environment.
[2017-05-27] MEDS: QUEtiapine 100 MG TABLET. PO SCH ×2 (17:11→19:28)
--- NOTE | 2017-05-27 19:26 | PN ---
DATE: 05/26/2017 This is a late entry for 05/26/2017 and covers the elements not covered in my initial note of 05/26/2017. SUBJECTIVE: I met with the patient afternoon of 05/26/2017. Remains confused, ambulates independently. No CV, , pulmonary, eye, ENT system symptoms on review. At night, he was exit seeking, agitated with shower, then slept, received Zyprexa at 8:00 p.m. REVIEW OF SYSTEMS: No CV, , pulmonary, eye, ENT system symptoms on review. Reliability poor. MENTAL STATUS EXAM: Oriented to himself. Insight, judgment, recent and remote memory, attention, concentration, fund of knowledge poor, consistent with his diagnosis mentioned in my initial note. PLAN: Continue current psychotropics. Adjust as clinically indicated. MAN Natalie HEATH MD DR: RICK/sterling JOB#: [id number] / [id number]
[2017-05-27] MEDS: MIRTAZAPINE 15 MG TABLET PO SCH (19:27)
[2017-05-27] MEDS: ATORVASTATIN CALCIUM 20 MG TABLET PO SCH (19:27)
[2017-05-27] MEDS: traZODone 100 MG TABLET. PO SCH (19:28)
--- NOTE | 2017-05-27 21:10 | PDOC ---
Exam Note: Eric Note: Please also refer to the separate dictated note~for this date of service dictated separately.~Patient seen individually. Discussed the patient with Nursing staff reviewed the chart.~Reviewed interim history and current functioning. Reviewed vital signs,~Labs/ Radiology~and current medications noted below. Continue current treatment with the changes noted in the dictated addendum note Assessment: Vital Signs: Vital Signs Date Time Temp Pulse Resp B/P (MAP) Pulse Ox O2 Delivery O2 Flow Rate FiO2 05/27/17 19:29 78 127/61 05/27/17 16:21 98.1 16 96 05/26/17 16:27 Room Air I&O Intake and Output 05/27/17 07:00 Intake Total 1080 ml Balance 1080 ml Intake Oral 1080 ml # Voids 1 Labs: Laboratory Tests Test 05/27/17 06:58 White Blood Count 8.1 x10^3/uL (4.0-11.0) Red Blood Count 4.02 x10^6/uL (4.30-5.70) L Hemoglobin 12.2 g/dL (13.0-17.5) L Hematocrit 35.9 % (39.0-53.0) L Mean Corpuscular Volume 89 fL (79-100) Mean Corpuscular Hemoglobin 30 pg (25-35) Mean Corpuscular Hemoglobin Concent 34 g/dL (31-37) Red Cell Distribution Width 13.9 % (11.5-14.5) Platelet Count 178 x10^3/uL (140-400) Neutrophils (%) (Auto) 60 % (31-73) Lymphocytes (%) (Auto) 26 % (24-48) Monocytes (%) (Auto) 12 % (0-9) H Eosinophils (%) (Auto) 3 % (0-3) Basophils (%) (Auto) 1 % (0-3) Neutrophils # (Auto) 4.8 x10^3uL (1.8-7.7) Lymphocytes # (Auto) 2.1 x10^3/uL (1.0-4.8) Monocytes # (Auto) 1.0 x10^3/uL (0.0-1.1) Eosinophils # (Auto) 0.2 x10^3/uL (0.0-0.7) Basophils # (Auto) 0.0 x10^3/uL (0.0-0.2) Sodium Level 141 mmol/L (136-145) Potassium Level 4.8 mmol/L (3.5-5.1) Chloride Level 108 mmol/L (98-107) H Carbon Dioxide Level 26 mmol/L (21-32) Anion Gap 7 (6-14) Blood Urea Nitrogen 39 mg/dL (8-26) H Creatinine 1.3 mg/dL (0.7-1.3) Estimated GFR (Cockcroft-Gault) 52.6 BUN/Creatinine Ratio 30 (6-20) H Glucose Level 87 mg/dL (70-99) Calcium Level 9.0 mg/dL (8.5-10.1) Total Bilirubin 0.6 mg/dL (0.2-1.0) Aspartate Amino Transferase (AST) 29 U/L (15-37) Alanine Aminotransferase (ALT) 25 U/L (16-63) Alkaline Phosphatase 77 U/L (46-116) Total Protein 6.4 g/dL (6.4-8.2) Albumin 3.4 g/dL (3.4-5.0) Albumin/Globulin Ratio 1.1 (1.0-1.7) Valproic Acid Level 13 mcg/mL (50-100) L Valproic Acid Last Dose Date 05/26/17 Valproic Acid Last Dose Time 1700 Current Medications: Meds: Current Medications Multi-Ingredient Ointment (Analgesic [place]) 1 salma PRN QID PRN TP MUSCLE PAIN; Start 05/19/17 at 16:45 Amlodipine Besylate (Norvasc) 10 mg DAILY PO Last administered on 05/27/17at 08: 57; Start 05/20/17 at 09:00 Aspirin (Children'S Aspirin) 81 mg DAILY PO Last administered on 05/27/17at 08: 56; Start 05/20/17 at 09:00 Al Hydroxide/Mg Hydroxide (Mylanta Plus Xs) 30 ml Q6HRS PO ; Start 05/19/17 at 18 :00; Stop 05/19/17 at 19:45; Status DC Metoprolol Tartrate (Lopressor) 25 mg BID PO Last administered on 05/27/17at 19: 29; Start 05/19/17 at 21:00 Naproxen (Naprosyn) 500 mg BID PO Last administered on 05/27/17 19:28; Start 05/19/17 at 21:00 Trazodone HCl (Desyrel) 50 mg BIDACLD PO Last administered on 05/24/17 11:33; Start 05/20/17 at 11:30; Stop 05/24/17 at 12:27; Status DC Trazodone HCl (Desyrel) 200 mg HS PO Last administered on 05/27/17 19:28; Start 05/19/17 at 21:00 Atorvastatin Calcium (Lipitor) 80 mg QHS PO Last administered on 05/27/17 19: 27; Start 05/19/17 at 21:00 Magnesium Hydroxide (Milk Of Magnesia) 2,400 mg Q6HRS PO ; Start 05/19/17 at 18: 00; Stop 05/20/17 at 01:23; Status DC Acetaminophen (Tylenol) 325 mg PRN Q6HRS PRN PO PAIN; Start 05/19/17 at 17:30 Polyethylene Glycol (miraLAX) 17 gm DAILY PO Last administered on 05/27/17at 08: 54; Start 05/20/17 at 09:00 Quetiapine Fumarate (SEROquel) 50 mg BIDACBL PO Last administered on 05/27/17 12:22; Start 05/20/17 at 07:30 Quetiapine Fumarate (SEROquel) 100 mg DAILY16 PO Last administered on 17:11; Start 05/20/17 at 16:00 Quetiapine Fumarate (SEROquel) 100 mg HS PO Last administered on 05/27/17 19: 28; Start 05/19/17 at 21:00 Trazodone HCl (Desyrel) 25 mg DAILY PO Last administered on 05/24/17 07:57; Start 05/20/17 at 09:00; Stop 05/24/17 at 19:40; Status DC Lorazepam (Ativan) 1 mg PRN Q4HRS PRN PO ANXIETY / AGITATION Last administered on 05/22/17 00:21; Start 05/19/17 at 17:30 Olanzapine (ZyPREXA ZYDIS) 5 mg PRN Q4HRS PRN PO ANXIETY / AGITATION Last administered on 05/26/17 20:12; Start 05/19/17 at 17:45 Al Hydroxide/Mg Hydroxide (Mylanta Plus Xs) 30 ml PRN Q6HRS PRN PO CONSTIPATION ; Start 05/20/17 at 18:00 Magnesium Hydroxide (Milk Of Magnesia) 2,400 mg PRN Q6HRS PRN PO CONSTIPATION Last administered on 05/20/17at 10:07; Start 05/20/17 at 01:30 Mirtazapine (Remeron) 7.5 mg QHS PO Last administered on 05/21/17at 19:50; Start 05/20/17 at 21:00; Stop 05/22/17 at 18:07; Status DC Vitamin D (Vitamin D3) 2,000 unit DAILY PO Last administered on 05/27/17 08:56 ; Start 05/23/17 at 09:00 Cyanocobalamin (Vitamin B-12) 1,000 mcg DAILY PO Last administered on 08:55; Start 05/23/17 at 09:00 Mirtazapine (Remeron) 15 mg QHS PO Last administered on 05/27/17at 19:27; Start 05/22/17 at 21:00 Trazodone HCl (Desyrel) 25 mg BIDACLD PO Last administered on 05/24/17at 16:25; Start 05/24/17 at 16:30; Stop 05/24/17 at 19:40; Status DC Divalproex Sodium (Depakote Sprinkles) 125 mg BID@0900,1700 PO Last administered on 05/27/17 17:11; Start 05/24/17 at 17:00; Stop 05/27/17 at 19:26 ; Status DC Trazodone HCl (Desyrel) 25 mg TIDWMEALS PO Last administered on 05/25/17at 16:35 ; Start 05/25/17 at 08:00; Stop 05/25/17 at 18:48; Status DC Trazodone HCl (Desyrel) 12.5 mg TIDWMEALS PO Last administered on 05/27/17at 17: 12; Start 05/26/17 at 08:00 Divalproex Sodium (Depakote Sprinkles) 250 mg BID@0900,1700 PO ; Start 05/28/17 at 09:00 Active Scripts Active Reported Seroquel (Quetiapine Fumarate) 100 Mg Tablet 100 Mg PO HS Seroquel (Quetiapine Fumarate) 100 Mg Tablet 100 Mg PO DAILY16 Trazodone Hcl 50 Mg Tablet 25 Mg PO DAILY Lorazepam 1 Mg Tablet 1 Mg PO PRN Q4HRS PRN Seroquel (Quetiapine Fumarate) 100 Mg Tablet 50 Mg PO BIDACBL Mi Acid Suspension (Mag Hydrox/Al Hydrox/Simeth) 355 Ml Oral.susp 30 Ml PO PRN Q6HRS Milk Of Magnesia (Magnesium Hydroxide) 2,400 Mg/10 Ml Oral.susp 30 Ml PO PRN Q6HRS PRN Miralax (Polyethylene Glycol 3350) 17 Gm Powd.pack 1 Packet PO DAILY Tylenol (Acetaminophen) 325 Mg Tablet 1 Tab PO PRN Q6HRS PRN Aspirin 81 Mg Tab.chew 81 Mg PO DAILY Amlodipine Besylate 10 Mg Tablet 10 Mg PO DAILY Metoprolol Tartrate 25 Mg Tablet 25 Mg PO BID Trazodone Hcl 100 Mg Tablet 200 Mg PO HS Atorvastatin Calcium 80 Mg Tablet 80 Mg PO QHS Naprosyn (Naproxen) 500 Mg Tablet 500 Mg PO BID Trazodone Hcl 50 Mg Tablet 50 Mg PO BIDACLD I have reviewed the current psychotropics carefully including drug interactions. Risk benefit ratio favors no change other than as noted in my dictated progress note. 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
[2017-05-27] MEDS: LORazepam 1 MG TABLET PO PRN (21:55)
--- NOTE | 2017-05-28 00:10 | NUR ---
Nursing Note: At Shift change pt in Locked bell very anxious and exit seeking, HS Medications hidden in Ice Cream and consumed without difficulty, Pt then calmed down, shower completed with issues. Pt noted to be drowsy in the day room at 2129, Nurse attempted to assist pt to bed, a female patient was in front of the exit door to the day room, staff member assisted female pt out of the way, this patient then grabbed ahold of her stating "I have you, you're ok" Nurse able to redirect pt and ambulate toward his room. Once in room pt refused to get in the bed stating he was thirsty and was going to get some water, Nurse offered to get pt water, Pt then ambulated to the bathroom, Roommate began yelling "do you want water" this pt then exited the bathroom, ambulated to roommate's bed took a hold of the bed rails and leaned over the top of roommate, Nurse attempting to redirect pt, Roommate then began yelling "No James" Nurse redirected both patients, explaining to this patient that he was scaring his roommate, pt stated "he should be scared" Nurse then stepped in front of pt getting his hands off of the bed rails, Pt medina back fist stating "I'm gonna kill you" Nurse stepped back, Pt then ambulated to the mechanical lift in room, Nurse called for assist, second Nurse entered to assist, Pt then medina fist back attempting to punch this Nurse again, Pt ambulated to Locked hallway, PRN Zydis and Ativan administered hidden in Ice Cream at 2154. Pt began to calm down and was assisted back to bed, Pt began getting out of bed and ambulating to roommates bed, Pt removed from room back to the day room. At Midnight Nurse noted pt very unsteady on his feet and having difficulty keeping his eyes open while attempting to ambulate, Nurse and Tech assisted pt back to bed, upon entrance to room, pt again attempted to punch Nurse and Tech, Staff able to get pt into bed and covered with blankets at this time
--- NOTE | 2017-05-28 00:17 | NUR ---
Behavior Intervention Response and Plan: BIRP Note: Behavior: Assumed Care of patient, patient located in Hallway at shift change. Patient exhibited the following behavior Restless, Irritable, Delusional. Brief assessment on rounds of vital signs, medication needs, lab studies, and pain. Treatment plan problems Dementia with BD and Fall Risk. Intervention: Patient assessed and the following interventions initiated safety checks 15 Minute Checks Cognitive Assessment , Head to toe Assessment , Medications. Response: After interactions and interventions patient responded in the following manner, Angry, Hostile, Combative. Continue to assess behaviors and condition will continue to monitor throughout the shift as needed. Patient educated on ADL's, and hand hygiene. 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 Continue to assess patient for changes in above assessment. Monitor for medication needs, pain, and safety concerns. Hourly rounding performed to ensure safe environment.
[2017-05-28 05:59] VITALS: BP 159/66
[2017-05-28] MEDS: traZODone 50 MG TABLET. PO SCH ×3 (08:00→17:00)
[2017-05-28] MEDS: amLODIPine BESYLATE 10 MG TABLET PO SCH (08:15)
[2017-05-28] MEDS: CHOLECALCIFEROL (VITAMIN D3) 1,000 UNIT TABLET PO SCH (08:15)
[2017-05-28] MEDS: QUEtiapine 50 MG TABLET. PO SCH ×2 (08:15→11:54)
[2017-05-28] MEDS: METOPROLOL TART IMMED RELEASE 25 MG TABLET PO SCH ×2 (08:16→19:39)
[2017-05-28] MEDS: CYANOCOBALAMIN (VITAMIN B-12) 1,000 MCG TABLET. PO SCH (08:16)
[2017-05-28] MEDS: NAPROXEN 500 MG TABLET PO SCH ×2 (08:16→19:39)
[2017-05-28] MEDS: ASPIRIN 81 MG TAB.CHEW PO SCH (08:17)
[2017-05-28] MEDS: POLYETHYLENE GLYCOL 3350 17 GM PACKET. PO SCH (08:17)
[2017-05-28] MEDS: DIVALPROEX 125 MG CAP.SPRINK PO SCH ×2 (08:18→17:28)
--- NOTE | 2017-05-28 08:30 | NUR ---
Patient's trazodone held this AM d/t drowsiness. Patient extremely unsteady on his feet at this time, and using a w/c, will continue to monitor.
[2017-05-28 16:09] VITALS: BP 116/68
--- NOTE | 2017-05-28 17:13 | NUR ---
Behavior Intervention Response and Plan: BIRP Note: Behavior: Assumed Care of patient, patient located in Dining Room at shift change. Patient exhibited the following behavior Calm, Disorganized, Drowsy. Brief assessment on rounds of vital signs, medication needs, lab studies, and pain. Treatment plan problems . Intervention: Patient assessed and the following interventions initiated safety checks 15 Minute Checks Cognitive Assessment , Head to toe Assessment , Medications. Response: After interactions and interventions patient responded in the following manner, Disorganized , Compliant ,Drowsy. Continue to assess behaviors and condition will continue to monitor throughout the shift as needed. Patient educated on ADL's, and hand hygiene. Plan: Continue to monitor Master Treatment Plan for patient's progress toward short term goals of Decreased Agitation, Decreased Aggression, alf goals to return to previous living setting vs placement. Continue to assess patient for changes in above assessment. Monitor for medication needs, pain, and safety concerns. Hourly rounding performed to ensure safe environment.
[2017-05-28] MEDS: QUEtiapine 100 MG TABLET. PO SCH ×2 (17:28→19:39)
--- NOTE | 2017-05-28 18:46 | NUR ---
PM trazodone held d/t patient's drowsiness. Daytime scheduled trazodone discontinued per Dr. Almanza.
[2017-05-28] MEDS: ATORVASTATIN CALCIUM 20 MG TABLET PO SCH (19:38)
[2017-05-28] MEDS: traZODone 100 MG TABLET. PO SCH (19:39)
[2017-05-28] MEDS: MIRTAZAPINE 15 MG TABLET PO SCH (19:39)
[2017-05-28] MEDS: MAGNESIUM HYDROXIDE 2,400 MG/30 ML ORAL.SUSP. PO PRN (19:57)
--- NOTE | 2017-05-28 20:34 | PDOC ---
Exam Note: Eric Note: Please also refer to the separate dictated note~for this date of service dictated separately.~Patient seen individually. Discussed the patient with Nursing staff reviewed the chart.~Reviewed interim history and current functioning. Reviewed vital signs,~Labs/ Radiology~and current medications noted below. Continue current treatment with the changes noted in the dictated addendum note Assessment: Vital Signs: Vital Signs Date Time Temp Pulse Resp B/P (MAP) Pulse Ox O2 Delivery O2 Flow Rate FiO2 05/28/17 19:39 64 116/68 05/28/17 16:09 97.5 16 98 05/26/17 16:27 Room Air I&O Intake and Output 05/28/17 07:00 Intake Total 840 ml Balance 840 ml Intake Oral 840 ml # Voids 1 Current Medications: Meds: Current Medications Multi-Ingredient Ointment (Analgesic [place]) 1 salma PRN QID PRN TP MUSCLE PAIN; Start 05/19/17 at 16:45 Amlodipine Besylate (Norvasc) 10 mg DAILY PO Last administered on 05/28/17at 08: 15; Start 05/20/17 at 09:00 Aspirin (Children'S Aspirin) 81 mg DAILY PO Last administered on 05/28/17at 08: 17; Start 05/20/17 at 09:00 Al Hydroxide/Mg Hydroxide (Mylanta Plus Xs) 30 ml Q6HRS PO ; Start 05/19/17 at 18 :00; Stop 05/19/17 at 19:45; Status DC Metoprolol Tartrate (Lopressor) 25 mg BID PO Last administered on 05/28/17 19: 39; Start 05/19/17 at 21:00 Naproxen (Naprosyn) 500 mg BID PO Last administered on 05/28/17 19:39; Start 05/19/17 at 21:00 Trazodone HCl (Desyrel) 50 mg BIDACLD PO Last administered on 05/24/17at 11:33; Start 05/20/17 at 11:30; Stop 05/24/17 at 12:27; Status DC Trazodone HCl (Desyrel) 200 mg HS PO Last administered on 05/28/17 19:39; Start 05/19/17 at 21:00 Atorvastatin Calcium (Lipitor) 80 mg QHS PO Last administered on 3/12/18at 19: 38; Start 05/19/17 at 21:00 Magnesium Hydroxide (Milk Of Magnesia) 2,400 mg Q6HRS PO ; Start 05/19/17 at 18: 00; Stop 05/20/17 at 01:23; Status DC Acetaminophen (Tylenol) 325 mg PRN Q6HRS PRN PO PAIN; Start 05/19/17 at 17:30 Polyethylene Glycol (miraLAX) 17 gm DAILY PO Last administered on 05/28/17 08: 17; Start 05/20/17 at 09:00 Quetiapine Fumarate (SEROquel) 50 mg BIDACBL PO Last administered on 05/28/17 11:54; Start 05/20/17 at 07:30 Quetiapine Fumarate (SEROquel) 100 mg DAILY16 PO Last administered on 17:28; Start 05/20/17 at 16:00 Quetiapine Fumarate (SEROquel) 100 mg HS PO Last administered on 05/28/17 19: 39; Start 05/19/17 at 21:00 Trazodone HCl (Desyrel) 25 mg DAILY PO Last administered on 05/24/17 07:57; Start 05/20/17 at 09:00; Stop 05/24/17 at 19:40; Status DC Lorazepam (Ativan) 1 mg PRN Q4HRS PRN PO ANXIETY / AGITATION Last administered on 05/27/17 21:55; Start 05/19/17 at 17:30 Olanzapine (ZyPREXA ZYDIS) 5 mg PRN Q4HRS PRN PO ANXIETY / AGITATION Last administered on 05/27/17 21:54; Start 05/19/17 at 17:45 Al Hydroxide/Mg Hydroxide (Mylanta Plus Xs) 30 ml PRN Q6HRS PRN PO CONSTIPATION ; Start 05/20/17 at 18:00 Magnesium Hydroxide (Milk Of Magnesia) 2,400 mg PRN Q6HRS PRN PO CONSTIPATION Last administered on 05/28/17 19:57; Start 05/20/17 at 01:30 Mirtazapine (Remeron) 7.5 mg QHS PO Last administered on 05/21/17 19:50; Start 05/20/17 at 21:00; Stop 05/22/17 at 18:07; Status DC Vitamin D (Vitamin D3) 2,000 unit DAILY PO Last administered on 05/28/17at 08:15 ; Start 05/23/17 at 09:00 Cyanocobalamin (Vitamin B-12) 1,000 mcg DAILY PO Last administered on at 08:16; Start 05/23/17 at 09:00 Mirtazapine (Remeron) 15 mg QHS PO Last administered on 05/28/17at 19:39; Start 05/22/17 at 21:00 Trazodone HCl (Desyrel) 25 mg BIDACLD PO Last administered on 05/24/17at 16:25; Start 05/24/17 at 16:30; Stop 05/24/17 at 19:40; Status DC Divalproex Sodium (Depakote Sprinkles) 125 mg BID@0900,1700 PO Last administered on 05/27/17at 17:11; Start 05/24/17 at 17:00; Stop 05/27/17 at 19:26 ; Status DC Trazodone HCl (Desyrel) 25 mg TIDWMEALS PO Last administered on 05/25/17at 16:35 ; Start 05/25/17 at 08:00; Stop 05/25/17 at 18:48; Status DC Trazodone HCl (Desyrel) 12.5 mg TIDWMEALS PO Last administered on 05/28/17at 11: 54; Start 05/26/17 at 08:00; Stop 05/28/17 at 18:43; Status DC Divalproex Sodium (Depakote Sprinkles) 250 mg BID@0900,1700 PO Last administered on 05/28/17at 17:28; Start 05/28/17 at 09:00 Buspirone HCl (Buspar) 5 mg TIDWMEALS PO ; Start 05/29/17 at 08:00 Melatonin 3 mg PRN QHS PRN PO INSOMNIA; Start 05/28/17 at 18:45 Active Scripts Active Reported Seroquel (Quetiapine Fumarate) 100 Mg Tablet 100 Mg PO HS Seroquel (Quetiapine Fumarate) 100 Mg Tablet 100 Mg PO DAILY16 Trazodone Hcl 50 Mg Tablet 25 Mg PO DAILY Lorazepam 1 Mg Tablet 1 Mg PO PRN Q4HRS PRN Seroquel (Quetiapine Fumarate) 100 Mg Tablet 50 Mg PO BIDACBL Mi Acid Suspension (Mag Hydrox/Al Hydrox/Simeth) 355 Ml Oral.susp 30 Ml PO PRN Q6HRS Milk Of Magnesia (Magnesium Hydroxide) 2,400 Mg/10 Ml Oral.susp 30 Ml PO PRN Q6HRS PRN Miralax (Polyethylene Glycol 3350) 17 Gm Powd.pack 1 Packet PO DAILY Tylenol (Acetaminophen) 325 Mg Tablet 1 Tab PO PRN Q6HRS PRN Aspirin 81 Mg Tab.chew 81 Mg PO DAILY Amlodipine Besylate 10 Mg Tablet 10 Mg PO DAILY Metoprolol Tartrate 25 Mg Tablet 25 Mg PO BID Trazodone Hcl 100 Mg Tablet 200 Mg PO HS Atorvastatin Calcium 80 Mg Tablet 80 Mg PO QHS Naprosyn (Naproxen) 500 Mg Tablet 500 Mg PO BID Trazodone Hcl 50 Mg Tablet 50 Mg PO BIDACLD I have reviewed the current psychotropics carefully including drug interactions. Risk benefit ratio favors no change other than as noted in my dictated progress note. 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
[2017-05-28] MEDS: MELATONIN 3 MG TABLET PO PRN (21:37)
--- NOTE | 2017-05-28 22:00 | NUR ---
Nursing Note: Pt noted with no BM for several days, PRN MOM administered with HS Medications in chocolate Ice Cream, all consumed without difficulty. Pt assisted to bed after he began falling asleep in the day room. After going to bed, the bed alarm began to sound, staff in to check on pt, Pt up in room, very angry and aggressive, believing they are intruders in his house, Pt became very violent with attempts to redirect, Pt placed in locked bell for prevention of injury to others r/t level of aggression and hostility. PRN Melatonin and Zydis administered per PRN order hidden in Ice Cream at 2130. Pt began to calm down and looked drowsy, staff assisted pt back to bed without issue at this time.
--- NOTE | 2017-05-28 22:05 | PN ---
DATE: 05/27/2017 PSYCHIATRIC PROGRESS NOTE This late entry 05/27/2017 covers elements not covered in my initial note of 05/27/2017. SUBJECTIVE: Met with the patient in evening of 05/27/2017. Previous evening, the patient was wandering, exit seeking, received Zyprexa at 8:00 p.m., did better, slept 6-1/4 hours, wandering. During today, 05/27/2017, not exit seeking. REVIEW OF SYSTEMS: No CV, , pulmonary, eye, ENT system symptoms on review. Reliability is poor. MENTAL STATUS EXAM: Oriented to himself. Insight, judgment, recent and remote memory, attention, concentration, fund of knowledge is poor, consistent with his diagnoses mentioned in my initial note. PLAN: Valproic acid level subtherapeutic at 13. Increase Depakote to 250 mg twice a day. Check labs, valproic acid level, adjust as indicated. Rest unchanged from initial note. MAN Natalie HEATH MD DR: RICK/sterling JOB#: [id number] / [id number]
--- NOTE | 2017-05-28 23:04 | NUR ---
Behavior Intervention Response and Plan: BIRP Note: Behavior: Assumed Care of patient, patient located in Hallway at shift change. Patient exhibited the following behavior Restless, Irritable, Delusional. Brief assessment on rounds of vital signs, medication needs, lab studies, and pain. Treatment plan problems Dementia with BD and Fall Risk. Intervention: Patient assessed and the following interventions initiated safety checks 15 Minute Checks Cognitive Assessment , Head to toe Assessment , Medications. Response: After interactions and interventions patient responded in the following manner, Angry, Hostile, Combative. Continue to assess behaviors and condition will continue to monitor throughout the shift as needed. Patient educated on ADL's, and hand hygiene. 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 Continue to assess patient for changes in above assessment. Monitor for medication needs, pain, and safety concerns. Hourly rounding performed to ensure safe environment.
[2017-05-29 08:16] VITALS: BP 142/83
[2017-05-29] MEDS: CYANOCOBALAMIN (VITAMIN B-12) 1,000 MCG TABLET. PO SCH (08:17)
[2017-05-29] MEDS: DIVALPROEX 125 MG CAP.SPRINK PO SCH ×2 (08:17→17:18)
[2017-05-29] MEDS: amLODIPine BESYLATE 10 MG TABLET PO SCH (08:18)
[2017-05-29] MEDS: ASPIRIN 81 MG TAB.CHEW PO SCH (08:18)
[2017-05-29] MEDS: METOPROLOL TART IMMED RELEASE 25 MG TABLET PO SCH ×2 (08:18→19:58)
[2017-05-29] MEDS: CHOLECALCIFEROL (VITAMIN D3) 1,000 UNIT TABLET PO SCH (08:19)
[2017-05-29] MEDS: POLYETHYLENE GLYCOL 3350 17 GM PACKET. PO SCH (08:19)
[2017-05-29] MEDS: QUEtiapine 50 MG TABLET. PO SCH ×2 (08:19→12:27)
[2017-05-29] MEDS: NAPROXEN 500 MG TABLET PO SCH ×2 (08:19→19:58)
[2017-05-29] MEDS: busPIRone 5 MG TABLET. PO SCH ×4 (08:20→19:57)
--- NOTE | 2017-05-29 11:48 | NUR ---
Behavior Intervention Response and Plan: BIRP Note: Behavior: Assumed Care of patient, patient located in Dining Room at shift change. Patient exhibited the following behavior Wandering, Delusions, Disorganized. Brief assessment on rounds of vital signs, medication needs, lab studies, and pain. Treatment plan problems . Intervention: Patient assessed and the following interventions initiated safety checks 15 Minute Checks Cognitive Assessment , Head to toe Assessment , Medications. Response: After interactions and interventions patient responded in the following manner, Disorganized , Compliant ,Wandering. Continue to assess behaviors and condition will continue to monitor throughout the shift as needed. Patient educated on ADL's, and hand hygiene. Plan: Continue to monitor Master Treatment Plan for patient's progress toward short term goals of Decreased Agitation, Decreased Aggression, intermodal truck driver goals to return to previous living setting vs placement. Continue to assess patient for changes in above assessment. Monitor for medication needs, pain, and safety concerns. Hourly rounding performed to ensure safe environment.
--- NOTE | 2017-05-29 14:12 | NUR ---
SW faxed updated clinicals to pt's facility.
[2017-05-29 16:01] VITALS: BP 129/66
[2017-05-29] MEDS: QUEtiapine 100 MG TABLET. PO SCH ×2 (17:18→19:58)
[2017-05-29] MEDS: MIRTAZAPINE 15 MG TABLET PO SCH (19:57)
--- NOTE | 2017-05-29 20:00 | NUR ---
Behavior Intervention Response and Plan: BIRP Note: Behavior: Assumed Care of patient, patient located in Day Room at shift change. Patient exhibited the following behavior Calm, Compliant, Cooperative. Brief assessment on rounds of vital signs, medication needs, lab studies, and pain. Treatment plan problems . Intervention: Patient assessed and the following interventions initiated safety checks 15 Minute Checks Cognitive Assessment , Head to toe Assessment , Medications. Response: After interactions and interventions patient responded in the following manner, Calm , Compliant ,Cooperative. Continue to assess behaviors and condition will continue to monitor throughout the shift as needed. Patient educated on ADL's, and hand hygiene. Plan: Continue to monitor Master Treatment Plan for patient's progress toward short term goals of Decreased Anxiety, Decreased Agitation, residential goals to return to previous living setting vs placement. Continue to assess patient for changes in above assessment. Monitor for medication needs, pain, and safety concerns. Hourly rounding performed to ensure safe environment.
[2017-05-29] MEDS: ATORVASTATIN CALCIUM 20 MG TABLET PO SCH (20:01)
[2017-05-29] MEDS: traZODone 100 MG TABLET. PO SCH (20:02)
[2017-05-29] MEDS: MELATONIN 3 MG TABLET PO PRN (22:10)
--- NOTE | 2017-05-29 22:27 | PDOC ---
Exam Note: Eric Note: Please also refer to the separate dictated note~for this date of service dictated separately.~Patient seen individually. Discussed the patient with Nursing staff reviewed the chart.~Reviewed interim history and current functioning. Reviewed vital signs,~Labs/ Radiology~and current medications noted below. Continue current treatment with the changes noted in the dictated addendum note Assessment: Vital Signs: Vital Signs Date Time Temp Pulse Resp B/P (MAP) Pulse Ox O2 Delivery O2 Flow Rate FiO2 05/29/17 19:58 60 129/66 05/29/17 16:01 98.2 19 99 05/26/17 16:27 Room Air I&O Intake and Output 05/29/17 07:00 Intake Total 960 ml Balance 960 ml Intake Oral 960 ml # Voids 2 Current Medications: Meds: Current Medications Multi-Ingredient Ointment (Analgesic [place]) 1 salma PRN QID PRN TP MUSCLE PAIN; Start 05/19/17 at 16:45 Amlodipine Besylate (Norvasc) 10 mg DAILY PO Last administered on 05/29/17at 08: 18; Start 05/20/17 at 09:00 Aspirin (Children'S Aspirin) 81 mg DAILY PO Last administered on 05/29/17at 08: 18; Start 05/20/17 at 09:00 Al Hydroxide/Mg Hydroxide (Mylanta Plus Xs) 30 ml Q6HRS PO ; Start 05/19/17 at 18 :00; Stop 05/19/17 at 19:45; Status DC Metoprolol Tartrate (Lopressor) 25 mg BID PO Last administered on 05/29/17 19: 58; Start 05/19/17 at 21:00 Naproxen (Naprosyn) 500 mg BID PO Last administered on 05/29/17at 19:58; Start 05/19/17 at 21:00 Trazodone HCl (Desyrel) 50 mg BIDACLD PO Last administered on 05/24/17at 11:33; Start 05/20/17 at 11:30; Stop 05/24/17 at 12:27; Status DC Trazodone HCl (Desyrel) 200 mg HS PO Last administered on 05/29/17at 20:02; Start 05/19/17 at 21:00 Atorvastatin Calcium (Lipitor) 80 mg QHS PO Last administered on 05/29/17at 20: 01; Start 05/19/17 at 21:00 Magnesium Hydroxide (Milk Of Magnesia) 2,400 mg Q6HRS PO ; Start 05/19/17 at 18: 00; Stop 05/20/17 at 01:23; Status DC Acetaminophen (Tylenol) 325 mg PRN Q6HRS PRN PO PAIN; Start 05/19/17 at 17:30 Polyethylene Glycol (miraLAX) 17 gm DAILY PO Last administered on 05/29/17 08: 19; Start 05/20/17 at 09:00 Quetiapine Fumarate (SEROquel) 50 mg BIDACBL PO Last administered on 05/29/17 12:27; Start 05/20/17 at 07:30 Quetiapine Fumarate (SEROquel) 100 mg DAILY16 PO Last administered on 17:18; Start 05/20/17 at 16:00 Quetiapine Fumarate (SEROquel) 100 mg HS PO Last administered on 05/29/17 19: 58; Start 05/19/17 at 21:00 Trazodone HCl (Desyrel) 25 mg DAILY PO Last administered on 05/24/17 07:57; Start 05/20/17 at 09:00; Stop 05/24/17 at 19:40; Status DC Lorazepam (Ativan) 1 mg PRN Q4HRS PRN PO ANXIETY / AGITATION Last administered on 05/27/17 21:55; Start 05/19/17 at 17:30 Olanzapine (ZyPREXA ZYDIS) 5 mg PRN Q4HRS PRN PO ANXIETY / AGITATION Last administered on 05/28/17 21:37; Start 05/19/17 at 17:45 Al Hydroxide/Mg Hydroxide (Mylanta Plus Xs) 30 ml PRN Q6HRS PRN PO CONSTIPATION ; Start 05/20/17 at 18:00 Magnesium Hydroxide (Milk Of Magnesia) 2,400 mg PRN Q6HRS PRN PO CONSTIPATION Last administered on 05/28/17 19:57; Start 05/20/17 at 01:30 Mirtazapine (Remeron) 7.5 mg QHS PO Last administered on 05/21/17 19:50; Start 05/20/17 at 21:00; Stop 05/22/17 at 18:07; Status DC Vitamin D (Vitamin D3) 2,000 unit DAILY PO Last administered on 05/29/17 08:19 ; Start 05/23/17 at 09:00 Cyanocobalamin (Vitamin B-12) 1,000 mcg DAILY PO Last administered on 08:17; Start 05/23/17 at 09:00 Mirtazapine (Remeron) 15 mg QHS PO Last administered on 05/29/17at 19:57; Start 05/22/17 at 21:00 Trazodone HCl (Desyrel) 25 mg BIDACLD PO Last administered on 05/24/17 16:25; Start 05/24/17 at 16:30; Stop 05/24/17 at 19:40; Status DC Divalproex Sodium (Depakote Sprinkles) 125 mg BID@0900,1700 PO Last administered on 05/27/17at 17:11; Start 05/24/17 at 17:00; Stop 05/27/17 at 19:26 ; Status DC Trazodone HCl (Desyrel) 25 mg TIDWMEALS PO Last administered on 05/25/17at 16:35 ; Start 05/25/17 at 08:00; Stop 05/25/17 at 18:48; Status DC Trazodone HCl (Desyrel) 12.5 mg TIDWMEALS PO Last administered on 05/28/17 11: 54; Start 05/26/17 at 08:00; Stop 05/28/17 at 18:43; Status DC Divalproex Sodium (Depakote Sprinkles) 250 mg BID@0900,1700 PO Last administered on 05/29/17 17:18; Start 05/28/17 at 09:00 Buspirone HCl (Buspar) 5 mg TIDWMEALS PO Last administered on 05/29/17 17:18; Start 05/29/17 at 08:00; Stop 05/29/17 at 19:28; Status DC Melatonin 3 mg PRN QHS PRN PO INSOMNIA Last administered on 05/29/17at 22:10; Start 05/28/17 at 18:45 Buspirone HCl (Buspar) 5 mg 0730,1130,1530,1930 PO Last administered on at 19:57; Start 05/29/17 at 19:30 Active Scripts Active Reported Seroquel (Quetiapine Fumarate) 100 Mg Tablet 100 Mg PO HS Seroquel (Quetiapine Fumarate) 100 Mg Tablet 100 Mg PO DAILY16 Trazodone Hcl 50 Mg Tablet 25 Mg PO DAILY Lorazepam 1 Mg Tablet 1 Mg PO PRN Q4HRS PRN Seroquel (Quetiapine Fumarate) 100 Mg Tablet 50 Mg PO BIDACBL Mi Acid Suspension (Mag Hydrox/Al Hydrox/Simeth) 355 Ml Oral.susp 30 Ml PO PRN Q6HRS Milk Of Magnesia (Magnesium Hydroxide) 2,400 Mg/10 Ml Oral.susp 30 Ml PO PRN Q6HRS PRN Miralax (Polyethylene Glycol 3350) 17 Gm Powd.pack 1 Packet PO DAILY Tylenol (Acetaminophen) 325 Mg Tablet 1 Tab PO PRN Q6HRS PRN Aspirin 81 Mg Tab.chew 81 Mg PO DAILY Amlodipine Besylate 10 Mg Tablet 10 Mg PO DAILY Metoprolol Tartrate 25 Mg Tablet 25 Mg PO BID Trazodone Hcl 100 Mg Tablet 200 Mg PO HS Atorvastatin Calcium 80 Mg Tablet 80 Mg PO QHS Naprosyn (Naproxen) 500 Mg Tablet 500 Mg PO BID Trazodone Hcl 50 Mg Tablet 50 Mg PO BIDACLD I have reviewed the current psychotropics carefully including drug interactions. Risk benefit ratio favors no change other than as noted in my dictated progress note. 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
--- NOTE | 2017-05-29 22:45 | PN ---
DATE: 05/28/2017 PSYCHIATRIC PROGRESS NOTE This is a late entry for 05/28/2017, covers elements not covered in my initial note of 05/28/2017. SUBJECTIVE: I met with the patient the evening of 05/28/2017. The patient has been somewhat sedated during the day, and we will stop his daytime trazodone 12.5 mg t.i.d. He has still been anxious, hallucinating at times, grabbing the doors, mumbling, confused, slept 2-3/4 hours. We will add melatonin 3 mg at bedtime and BuSpar 5 mg 3 times a day for anxiety. REVIEW OF SYSTEMS: No CV, , pulmonary, eye, ENT system symptoms on review. Reliability poor. MENTAL STATUS EXAM: Oriented to himself. Insight, judgment, recent and remote memory, attention, concentration, fund of knowledge poor, consistent with his diagnosis mentioned in my initial note. PLAN: Continue current psychotropics with changes noted above. GENARO HEATH MD DR: RICK/sterling JOB#: [id number] / [id number]
[2017-05-30 06:08] VITALS: BP 160/84
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
[2017-05-30] MEDS: QUEtiapine 50 MG TABLET. PO SCH ×2 (08:06→11:44)
[2017-05-30] MEDS: DIVALPROEX 125 MG CAP.SPRINK PO SCH ×2 (08:06→16:19)
[2017-05-30] MEDS: amLODIPine BESYLATE 10 MG TABLET PO SCH (08:07)
[2017-05-30] MEDS: busPIRone 5 MG TABLET. PO SCH ×4 (08:07→19:54)
[2017-05-30] MEDS: NAPROXEN 500 MG TABLET PO SCH ×2 (08:07→19:55)
[2017-05-30] MEDS: METOPROLOL TART IMMED RELEASE 25 MG TABLET PO SCH ×2 (08:07→19:54)
[2017-05-30] MEDS: CYANOCOBALAMIN (VITAMIN B-12) 1,000 MCG TABLET. PO SCH (08:07)
[2017-05-30] MEDS: ASPIRIN 81 MG TAB.CHEW PO SCH (08:07)
[2017-05-30] MEDS: POLYETHYLENE GLYCOL 3350 17 GM PACKET. PO SCH (08:07)
[2017-05-30] MEDS: MAGNESIUM HYDROXIDE 2,400 MG/30 ML ORAL.SUSP. PO PRN (08:09)
[2017-05-30] MEDS: CHOLECALCIFEROL (VITAMIN D3) 1,000 UNIT TABLET PO SCH (08:09)
--- NOTE | 2017-05-30 10:00 | NUR ---
Behavior Intervention Response and Plan: BIRP Note: Behavior: Assumed Care of patient, patient located in Hallway at shift change. Patient exhibited the following behavior Disorganized, Hallucinating, Combative. Brief assessment on rounds of vital signs, medication needs, lab studies, and pain. Treatment plan problems . Intervention: Patient assessed and the following interventions initiated safety checks 15 Minute Checks Cognitive Assessment , Head to toe Assessment , Medications. Response: After interactions and interventions patient responded in the following manner, Disorganized , Irritable ,Delusions. Continue to assess behaviors and condition will continue to monitor throughout the shift as needed. Patient educated on ADL's, and hand hygiene. Plan: Continue to monitor Master Treatment Plan for patient's progress toward short term goals of Decreased Agitation, Decreased Aggression, terminal gauger goals to return to previous living setting vs placement. Continue to assess patient for changes in above assessment. Monitor for medication needs, pain, and safety concerns. Hourly rounding performed to ensure safe environment.
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
--- NOTE | 2017-05-30 15:00 | NUR ---
WEEKLY THERAPEUTIC RECREATION NOTE Date of Admission: 05/19/2017 Date of AT Assessment: 05/23/2017 Goal aimed: to increase his alertness and engagement Initial goal: Pt. will participate in all individual and group sensory stimulation activities. Weekly progress towards goal: did not meet, no sensory stimulation specific groups Group participation level: zero Behaviors observed: sleeps most of the time, aggressive at times, in secured hallway Sunday, picks up walker often, difficult to engage Plan: no changes to goal
[2017-05-30] MEDS: QUEtiapine 100 MG TABLET. PO SCH ×2 (16:17→19:55)
[2017-05-30 16:33] VITALS: BP 158/73
[2017-05-30] MEDS: LORazepam 1 MG TABLET PO PRN ×2 (16:57→21:06)
[2017-05-30] MEDS: ATORVASTATIN CALCIUM 20 MG TABLET PO SCH (19:54)
[2017-05-30] MEDS: AMITRIPTYLINE HCL 25 MG TABLET PO SCH (19:54)
[2017-05-30] MEDS: MELATONIN 3 MG TABLET PO SCH (19:54)
--- NOTE | 2017-05-30 20:00 | NUR ---
Pt extremely agitated, banging on doors, attempting to curing pickling packer chairs, threatening to kill this nurse if I don't open the door. Gave pt HS meds and Ativan in ice cream. Pt eventually calmed.
--- NOTE | 2017-05-30 20:50 | PDOC ---
Exam Note: Eric Note: Please also refer to the separate dictated note~for this date of service dictated separately.~Patient seen individually. Discussed the patient with Nursing staff reviewed the chart.~Reviewed interim history and current functioning. Reviewed vital signs,~Labs/ Radiology~and current medications noted below. Continue current treatment with the changes noted in the dictated addendum note Assessment: Vital Signs: Vital Signs Date Time Temp Pulse Resp B/P (MAP) Pulse Ox O2 Delivery O2 Flow Rate FiO2 05/30/17 19:54 61 158/73 05/30/17 16:33 97.4 18 97 05/26/17 16:27 Room Air I&O Intake and Output 05/30/17 07:00 Intake Total 1080 ml Balance 1080 ml Intake Oral 1080 ml # Voids 2 # Bowel Movements 2 Current Medications: Meds: Current Medications Multi-Ingredient Ointment (Analgesic [place]) 1 salma PRN QID PRN TP MUSCLE PAIN; Start 05/19/17 at 16:45 Amlodipine Besylate (Norvasc) 10 mg DAILY PO Last administered on 05/30/17at 08: 07; Start 05/20/17 at 09:00 Aspirin (Children'S Aspirin) 81 mg DAILY PO Last administered on 05/30/17at 08: 07; Start 05/20/17 at 09:00 Al Hydroxide/Mg Hydroxide (Mylanta Plus Xs) 30 ml Q6HRS PO ; Start 05/19/17 at 18 :00; Stop 05/19/17 at 19:45; Status DC Metoprolol Tartrate (Lopressor) 25 mg BID PO Last administered on 05/30/17at 19: 54; Start 05/19/17 at 21:00 Naproxen (Naprosyn) 500 mg BID PO Last administered on 05/30/17at 19:55; Start 05/19/17 at 21:00 Trazodone HCl (Desyrel) 50 mg BIDACLD PO Last administered on 05/24/17at 11:33; Start 05/20/17 at 11:30; Stop 05/24/17 at 12:27; Status DC Trazodone HCl (Desyrel) 200 mg HS PO Last administered on 05/29/17at 20:02; Start 05/19/17 at 21:00; Stop 05/30/17 at 14:34; Status DC Atorvastatin Calcium (Lipitor) 80 mg QHS PO Last administered on 05/30/17 19: 54; Start 05/19/17 at 21:00 Magnesium Hydroxide (Milk Of Magnesia) 2,400 mg Q6HRS PO ; Start 05/19/17 at 18: 00; Stop 05/20/17 at 01:23; Status DC Acetaminophen (Tylenol) 325 mg PRN Q6HRS PRN PO PAIN; Start 05/19/17 at 17:30 Polyethylene Glycol (miraLAX) 17 gm DAILY PO Last administered on 05/30/17 08: 07; Start 05/20/17 at 09:00 Quetiapine Fumarate (SEROquel) 50 mg BIDACBL PO Last administered on 05/30/17 11:44; Start 05/20/17 at 07:30 Quetiapine Fumarate (SEROquel) 100 mg DAILY16 PO Last administered on 16:17; Start 05/20/17 at 16:00 Quetiapine Fumarate (SEROquel) 100 mg HS PO Last administered on 05/30/17 19: 55; Start 05/19/17 at 21:00 Trazodone HCl (Desyrel) 25 mg DAILY PO Last administered on 05/24/17 07:57; Start 05/20/17 at 09:00; Stop 05/24/17 at 19:40; Status DC Lorazepam (Ativan) 1 mg PRN Q4HRS PRN PO ANXIETY / AGITATION Last administered on 05/30/17 16:57; Start 05/19/17 at 17:30 Olanzapine (ZyPREXA ZYDIS) 5 mg PRN Q4HRS PRN PO ANXIETY / AGITATION Last administered on 05/30/17at 13:00; Start 05/19/17 at 17:45 Al Hydroxide/Mg Hydroxide (Mylanta Plus Xs) 30 ml PRN Q6HRS PRN PO CONSTIPATION ; Start 05/20/17 at 18:00 Magnesium Hydroxide (Milk Of Magnesia) 2,400 mg PRN Q6HRS PRN PO CONSTIPATION Last administered on 05/30/17 08:09; Start 05/20/17 at 01:30 Mirtazapine (Remeron) 7.5 mg QHS PO Last administered on 05/21/17 19:50; Start 05/20/17 at 21:00; Stop 05/22/17 at 18:07; Status DC Vitamin D (Vitamin D3) 2,000 unit DAILY PO Last administered on 05/30/17at 08:09 ; Start 05/23/17 at 09:00 Cyanocobalamin (Vitamin B-12) 1,000 mcg DAILY PO Last administered on 08:07; Start 05/23/17 at 09:00 Mirtazapine (Remeron) 15 mg QHS PO Last administered on 05/29/17at 19:57; Start 05/22/17 at 21:00; Stop 05/30/17 at 14:34; Status DC Trazodone HCl (Desyrel) 25 mg BIDACLD PO Last administered on 05/24/17at 16:25; Start 05/24/17 at 16:30; Stop 05/24/17 at 19:40; Status DC Divalproex Sodium (Depakote Sprinkles) 125 mg BID@0900,1700 PO Last administered on 05/27/17at 17:11; Start 05/24/17 at 17:00; Stop 05/27/17 at 19:26 ; Status DC Trazodone HCl (Desyrel) 25 mg TIDWMEALS PO Last administered on 05/25/17at 16:35 ; Start 05/25/17 at 08:00; Stop 05/25/17 at 18:48; Status DC Trazodone HCl (Desyrel) 12.5 mg TIDWMEALS PO Last administered on 05/28/17at 11: 54; Start 05/26/17 at 08:00; Stop 05/28/17 at 18:43; Status DC Divalproex Sodium (Depakote Sprinkles) 250 mg BID@0900,1700 PO Last administered on 05/30/17 16:19; Start 05/28/17 at 09:00 Buspirone HCl (Buspar) 5 mg TIDWMEALS PO Last administered on 05/29/17 17:18; Start 05/29/17 at 08:00; Stop 05/29/17 at 19:28; Status DC Melatonin 3 mg PRN QHS PRN PO INSOMNIA Last administered on 05/29/17at 22:10; Start 05/28/17 at 18:45; Stop 05/30/17 at 14:35; Status DC Buspirone HCl (Buspar) 5 mg 0730,1130,1530,1930 PO Last administered on at 19:54; Start 05/29/17 at 19:30 Melatonin 6 mg QHS PO Last administered on 05/30/17at 19:54; Start 05/30/17 at 21:00 Amitriptyline HCl (Elavil) 25 mg QHS PO Last administered on 05/30/17at 19:54; Start 05/30/17 at 21:00 Active Scripts Active Reported Seroquel (Quetiapine Fumarate) 100 Mg Tablet 100 Mg PO HS Seroquel (Quetiapine Fumarate) 100 Mg Tablet 100 Mg PO DAILY16 Trazodone Hcl 50 Mg Tablet 25 Mg PO DAILY Lorazepam 1 Mg Tablet 1 Mg PO PRN Q4HRS PRN Seroquel (Quetiapine Fumarate) 100 Mg Tablet 50 Mg PO BIDACBL Mi Acid Suspension (Mag Hydrox/Al Hydrox/Simeth) 355 Ml Oral.susp 30 Ml PO PRN Q6HRS Milk Of Magnesia (Magnesium Hydroxide) 2,400 Mg/10 Ml Oral.susp 30 Ml PO PRN Q6HRS PRN Miralax (Polyethylene Glycol 3350) 17 Gm Powd.pack 1 Packet PO DAILY Tylenol (Acetaminophen) 325 Mg Tablet 1 Tab PO PRN Q6HRS PRN Aspirin 81 Mg Tab.chew 81 Mg PO DAILY Amlodipine Besylate 10 Mg Tablet 10 Mg PO DAILY Metoprolol Tartrate 25 Mg Tablet 25 Mg PO BID Trazodone Hcl 100 Mg Tablet 200 Mg PO HS Atorvastatin Calcium 80 Mg Tablet 80 Mg PO QHS Naprosyn (Naproxen) 500 Mg Tablet 500 Mg PO BID Trazodone Hcl 50 Mg Tablet 50 Mg PO BIDACLD I have reviewed the current psychotropics carefully including drug interactions. Risk benefit ratio favors no change other than as noted in my dictated progress note. Diagnosis: Problems: (1) Medical clearance for psychiatric admission (2) Anxiety disorder (3) Dementia in Alzheimer's disease with delusions (4) Dementia in Alzheimer's disease with depression (5) Dementia, vascular, with delusions (6) Dementia, vascular, with depression (7) Impulse control disorder GENARO HEATH MD May 30, 2017 20:50
--- NOTE | 2017-05-30 21:49 | NUR ---
Behavior Intervention Response and Plan: BIRP Note: Behavior: Assumed Care of patient, patient located in Hallway at shift change. Patient exhibited the following behavior Irritable, Combative, Agitated. Brief assessment on rounds of vital signs, medication needs, lab studies, and pain. Treatment plan problems .1&2 Intervention: Patient assessed and the following interventions initiated safety checks 15 Minute Checks Cognitive Assessment , Head to toe Assessment , Medications. Response: After interactions and interventions patient responded in the following manner, Non Compliant , Resistive ,Combative. Continue to assess behaviors and condition will continue to monitor throughout the shift as needed. Patient educated on ADL's, and hand hygiene. Plan: Continue to monitor Master Treatment Plan for patient's progress toward short term goals of Decreased Agitation, Decreased Anxiety, gold miner goals to return to previous living setting vs placement. Continue to assess patient for changes in above assessment. Monitor for medication needs, pain, and safety concerns. Hourly rounding performed to ensure safe environment.
[2017-05-31 07:29] LABS: BASO # 0.1 x10^3/uL (0.0-0.2); BASO % 2 % (0-3); EOS # 0.2 x10^3/uL (0.0-0.7); EOS % 3 % (0-3); HEMATOCRIT 36.8 % (39.0-53.0); HEMOGLOBIN 12.5 g/dL (13.0-17.5); LYMPH # 2.1 x10^3/uL (1.0-4.8); LYMPH % 29 % (24-48); MEAN CORPUSCULAR HEMOGLOBIN 30 pg (25-35); MEAN CORPUSCULAR HGB CONC 34 g/dL (31-37); MEAN CORPUSCULAR VOLUME 89 fL (79-100); MONO # 0.8 x10^3/uL (0.0-1.1); MONO % 10 % (0-9); NEUT # 4.1 x10^3uL (1.8-7.7); NEUT % 56 % (31-73); PLATELET COUNT 184 x10^3/uL (140-400); RED BLOOD COUNT 4.15 x10^6/uL (4.30-5.70); RED CELL DISTRIBUTION WIDTH 14.3 % (11.5-14.5); WHITE BLOOD COUNT 7.4 x10^3/uL (4.0-11.0)
[2017-05-31 07:43] LABS: ALBUMIN 3.3 g/dL (3.4-5.0); ALBUMIN/GLOBULIN RATIO 1.1 (1.0-1.7); ALK PHOS 78 U/L (46-116); ALT (SGPT) 24 U/L (16-63); ANION GAP 5 (6-14); AST (SGOT) 23 U/L (15-37); BLOOD UREA NITROGEN 37 mg/dL (8-26); BUN/CREATININE RATIO 31 (6-20); CARBON DIOXIDE 30 mmol/L (21-32); CHLORIDE 110 mmol/L (98-107); CREATININE 1.2 mg/dL (0.7-1.3); GFR 57.7; GLUCOSE 88 mg/dL (70-99); POTASSIUM 4.3 mmol/L (3.5-5.1); SODIUM 145 mmol/L (136-145); TOTAL BILIRUBIN 0.6 mg/dL (0.2-1.0); TOTAL PROTEIN 6.3 g/dL (6.4-8.2)
[2017-05-31 07:53] LABS: VAL ACID 13 mcg/mL (50-100)
--- NOTE | 2017-05-31 09:30 | NUR ---
Nursing Note: Pt allowed to sleep in this morning because allow charted that pt slept 7.25 hours, it was reported by staff that he did not get restful sleep.
[2017-05-31] MEDS: busPIRone 5 MG TABLET. PO SCH ×4 (11:30→21:25)
[2017-05-31] MEDS ORDERED: QUEtiapine 50 MG TABLET. PO SCH (11:30)
[2017-05-31] MEDS: ASPIRIN 81 MG TAB.CHEW PO SCH (11:32)
[2017-05-31] MEDS: POLYETHYLENE GLYCOL 3350 17 GM PACKET. PO SCH (11:32)
[2017-05-31] MEDS: CHOLECALCIFEROL (VITAMIN D3) 1,000 UNIT TABLET PO SCH (11:35)
[2017-05-31] MEDS: NAPROXEN 500 MG TABLET PO SCH (11:38)
[2017-05-31] MEDS: CYANOCOBALAMIN (VITAMIN B-12) 1,000 MCG TABLET. PO SCH (11:38)
[2017-05-31] MEDS: METOPROLOL TART IMMED RELEASE 25 MG TABLET PO SCH ×3 (11:38→21:28)
[2017-05-31] MEDS: amLODIPine BESYLATE 10 MG TABLET PO SCH (11:39)
--- NOTE | 2017-05-31 16:00 | NUR ---
Behavior Intervention Response and Plan: BIRP Note: Behavior: Assumed Care of patient, patient located in Hallway at shift change. Patient exhibited the following behavior Drowsy, Calm, Disorganized. Brief assessment on rounds of vital signs, medication needs, lab studies, and pain. Treatment plan problems dementia w/ bd and fall risk. Intervention: Patient assessed and the following interventions initiated safety checks 15 Minute Checks Medications , Head to toe Assessment , Cognitive Assessment. Response: After interactions and interventions patient responded in the following manner, Calm , Disorganized ,Drowsy. Continue to assess behaviors and condition will continue to monitor throughout the shift as needed. Patient educated on ADL's, and hand hygiene. Plan: Continue to monitor Master Treatment Plan for patient's progress toward short term goals of Decreased Aggression, Decreased Agitation, terminal operator goals to return to previous living setting vs placement. Continue to assess patient for changes in above assessment. Monitor for medication needs, pain, and safety concerns. Hourly rounding performed to ensure safe environment.
[2017-05-31] MEDS ORDERED: DIVALPROEX 125 MG CAP.SPRINK PO SCH (17:00)
--- NOTE | 2017-05-31 17:00 | NUR ---
Nursing Note: Fall Pt fell in day room witnessed by multiple staff members, however they were unable to reach pt in time to prevent fall . Dr. Raygoza was on the unit- Orders were placed for x-ray of pt's right hip and vitals were taken. Pt did not strike his head.
[2017-05-31] MEDS: QUEtiapine 100 MG TABLET. PO SCH ×2 (17:48→21:26)
--- NOTE | 2017-05-31 18:34 | RAD ---
HIP RIGHT 2 VIEW History: FALL TODAY, SEVERE RIGHT HIP PAIN Comparison: None. Findings: 2 views right hip are submitted. There is minimally displaced right femoral neck fracture. There are multiple clips in the pelvis. Impression: 1. There is minimally displaced right femoral neck fracture. Electronically signed by: Philippe Arriola MD (05/31/2017 6:32 PM) [facility]
--- NOTE | 2017-05-31 18:52 | NUR ---
Nursing Note: Transfer Pt to be transferred to [place] per Dr. Raygoza due to fracture of right hip. Hold Naproxen. Susi burning supervisor notified and is working toward finding bed for pt.
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
[2017-05-31] MEDS ORDERED: AMIT25TA PO (19:24)
[2017-05-31] MEDS ORDERED: CHOL10003 PO (19:26)
[2017-05-31] MEDS ORDERED: CYAN100072 PO (19:27)
[2017-05-31] MEDS ORDERED: DIVA125C PO (19:28)
[2017-05-31] MEDS ORDERED: MELA3TAB2 PO (19:29)
[2017-05-31] MEDS ORDERED: MORPHINE SULFATE 4 MG/ML DISP.SYRIN. IV PRN (19:30)
[2017-05-31] MEDS ORDERED: METH29OI TP (19:31)
[2017-05-31] MEDS ORDERED: OLAN5TAB5 PO (19:33)
[2017-05-31] MEDS ORDERED: BUSP5TAB PO (19:36)
[2017-05-31] MEDS ORDERED: MORP4SYR4 IV (19:39)
--- NOTE | 2017-05-31 20:34 | PDOC ---
Exam Note: Eric Note: Please also refer to the separate dictated note~for this date of service dictated separately.~Patient seen individually. Discussed the patient with Nursing staff reviewed the chart.~Reviewed interim history and current functioning. Reviewed vital signs,~Labs/ Radiology~and current medications noted below. Continue current treatment with the changes noted in the dictated addendum note Assessment: Vital Signs: Vital Signs Date Time Temp Pulse Resp B/P (MAP) Pulse Ox O2 Delivery O2 Flow Rate FiO2 05/31/17 19:40 24 05/31/17 16:31 97.4 66 98 Room Air 05/31/17 11:39 158/73 I&O Intake and Output 05/31/17 07:00 Intake Total 600 ml Balance 600 ml Intake Oral 600 ml # Voids 1 # Bowel Movements 3 Labs: Laboratory Tests Test 05/31/17 07:12 White Blood Count 7.4 x10^3/uL (4.0-11.0) Red Blood Count 4.15 x10^6/uL (4.30-5.70) L Hemoglobin 12.5 g/dL (13.0-17.5) L Hematocrit 36.8 % (39.0-53.0) L Mean Corpuscular Volume 89 fL (79-100) Mean Corpuscular Hemoglobin 30 pg (25-35) Mean Corpuscular Hemoglobin Concent 34 g/dL (31-37) Red Cell Distribution Width 14.3 % (11.5-14.5) Platelet Count 184 x10^3/uL (140-400) Neutrophils (%) (Auto) 56 % (31-73) Lymphocytes (%) (Auto) 29 % (24-48) Monocytes (%) (Auto) 10 % (0-9) H Eosinophils (%) (Auto) 3 % (0-3) Basophils (%) (Auto) 2 % (0-3) Neutrophils # (Auto) 4.1 x10^3uL (1.8-7.7) Lymphocytes # (Auto) 2.1 x10^3/uL (1.0-4.8) Monocytes # (Auto) 0.8 x10^3/uL (0.0-1.1) Eosinophils # (Auto) 0.2 x10^3/uL (0.0-0.7) Basophils # (Auto) 0.1 x10^3/uL (0.0-0.2) Sodium Level 145 mmol/L (136-145) Potassium Level 4.3 mmol/L (3.5-5.1) Chloride Level 110 mmol/L (98-107) H Carbon Dioxide Level 30 mmol/L (21-32) Anion Gap 5 (6-14) L Blood Urea Nitrogen 37 mg/dL (8-26) H Creatinine 1.2 mg/dL (0.7-1.3) Estimated GFR (Cockcroft-Gault) 57.7 BUN/Creatinine Ratio 31 (6-20) H Glucose Level 88 mg/dL (70-99) Calcium Level 9.0 mg/dL (8.5-10.1) Total Bilirubin 0.6 mg/dL (0.2-1.0) Aspartate Amino Transferase (AST) 23 U/L (15-37) Alanine Aminotransferase (ALT) 24 U/L (16-63) Alkaline Phosphatase 78 U/L (46-116) Total Protein 6.3 g/dL (6.4-8.2) L Albumin 3.3 g/dL (3.4-5.0) L Albumin/Globulin Ratio 1.1 (1.0-1.7) Valproic Acid Level 13 mcg/mL (50-100) L Valproic Acid Last Dose Date 05/30/2017 Valproic Acid Last Dose Time 1700 Current Medications: Meds: Current Medications Multi-Ingredient Ointment (Analgesic [place]) 1 farida PRN QID PRN TP MUSCLE PAIN; Start 05/19/17 at 16:45 Amlodipine Besylate (Norvasc) 10 mg DAILY PO Last administered on 05/31/17at 11: 39; Start 05/20/17 at 09:00 Aspirin (Children'S Aspirin) 81 mg DAILY PO Last administered on 05/31/17at 11: 32; Start 05/20/17 at 09:00 Al Hydroxide/Mg Hydroxide (Mylanta Plus Xs) 30 ml Q6HRS PO ; Start 05/19/17 at 18 :00; Stop 05/19/17 at 19:45; Status DC Metoprolol Tartrate (Lopressor) 25 mg BID PO Last administered on 05/31/17at 11: 38; Start 05/19/17 at 21:00 Naproxen (Naprosyn) 500 mg BID PO Last administered on 05/31/17 11:38; Start 05/19/17 at 21:00; Stop 05/31/17 at 18:58; Status DC Trazodone HCl (Desyrel) 50 mg BIDACLD PO Last administered on 05/24/17 11:33; Start 05/20/17 at 11:30; Stop 05/24/17 at 12:27; Status DC Trazodone HCl (Desyrel) 200 mg HS PO Last administered on 05/29/17 20:02; Start 05/19/17 at 21:00; Stop 05/30/17 at 14:34; Status DC Atorvastatin Calcium (Lipitor) 80 mg QHS PO Last administered on 05/30/17 19: 54; Start 05/19/17 at 21:00 Magnesium Hydroxide (Milk Of Magnesia) 2,400 mg Q6HRS PO ; Start 05/19/17 at 18: 00; Stop 05/20/17 at 01:23; Status DC Acetaminophen (Tylenol) 325 mg PRN Q6HRS PRN PO PAIN; Start 05/19/17 at 17:30 Polyethylene Glycol (miraLAX) 17 gm DAILY PO Last administered on 05/31/17 11: 32; Start 05/20/17 at 09:00 Quetiapine Fumarate (SEROquel) 50 mg BIDACBL PO Last administered on 05/30/17 11:44; Start 05/20/17 at 07:30; Stop 05/31/17 at 10:26; Status DC Quetiapine Fumarate (SEROquel) 100 mg DAILY16 PO Last administered on 17:48; Start 05/20/17 at 16:00 Quetiapine Fumarate (SEROquel) 100 mg HS PO Last administered on 05/30/17 19: 55; Start 05/19/17 at 21:00 Trazodone HCl (Desyrel) 25 mg DAILY PO Last administered on 05/24/17 07:57; Start 05/20/17 at 09:00; Stop 05/24/17 at 19:40; Status DC Lorazepam (Ativan) 1 mg PRN Q4HRS PRN PO ANXIETY / AGITATION Last administered on 05/30/17 21:06; Start 05/19/17 at 17:30 Olanzapine (ZyPREXA ZYDIS) 5 mg PRN Q4HRS PRN PO ANXIETY / AGITATION Last administered on 05/30/17at 13:00; Start 05/19/17 at 17:45 Al Hydroxide/Mg Hydroxide (Mylanta Plus Xs) 30 ml PRN Q6HRS PRN PO CONSTIPATION ; Start 05/20/17 at 18:00 Magnesium Hydroxide (Milk Of Magnesia) 2,400 mg PRN Q6HRS PRN PO CONSTIPATION Last administered on 05/30/17 08:09; Start 05/20/17 at 01:30 Mirtazapine (Remeron) 7.5 mg QHS PO Last administered on 05/21/17 19:50; Start 05/20/17 at 21:00; Stop 05/22/17 at 18:07; Status DC Vitamin D (Vitamin D3) 2,000 unit DAILY PO Last administered on 05/31/17 11:35 ; Start 05/23/17 at 09:00 Cyanocobalamin (Vitamin B-12) 1,000 mcg DAILY PO Last administered on 11:38; Start 05/23/17 at 09:00 Mirtazapine (Remeron) 15 mg QHS PO Last administered on 05/29/17 19:57; Start 05/22/17 at 21:00; Stop 05/30/17 at 14:34; Status DC Trazodone HCl (Desyrel) 25 mg BIDACLD PO Last administered on 05/24/17 16:25; Start 05/24/17 at 16:30; Stop 05/24/17 at 19:40; Status DC Divalproex Sodium (Depakote Sprinkles) 125 mg BID@0900,1700 PO Last administered on 05/27/17 17:11; Start 05/24/17 at 17:00; Stop 05/27/17 at 19:26 ; Status DC Trazodone HCl (Desyrel) 25 mg TIDWMEALS PO Last administered on 05/25/17 16:35 ; Start 05/25/17 at 08:00; Stop 05/25/17 at 18:48; Status DC Trazodone HCl (Desyrel) 12.5 mg TIDWMEALS PO Last administered on 3/12/18at 11: 54; Start 05/26/17 at 08:00; Stop 05/28/17 at 18:43; Status DC Divalproex Sodium (Depakote Sprinkles) 250 mg BID@0900,1700 PO Last administered on 05/30/17at 16:19; Start 05/28/17 at 09:00; Stop 05/31/17 at 10:26 ; Status DC Buspirone HCl (Buspar) 5 mg TIDWMEALS PO Last administered on 05/29/17at 17:18; Start 05/29/17 at 08:00; Stop 05/29/17 at 19:28; Status DC Melatonin 3 mg PRN QHS PRN PO INSOMNIA Last administered on 05/29/17at 22:10; Start 05/28/17 at 18:45; Stop 05/30/17 at 14:35; Status DC Buspirone HCl (Buspar) 5 mg 0730,1130,1530,1930 PO Last administered on at 17:44; Start 05/29/17 at 19:30 Melatonin 6 mg QHS PO Last administered on 05/30/17 19:54; Start 05/30/17 at 21:00 Amitriptyline HCl (Elavil) 25 mg QHS PO Last administered on 05/30/17 19:54; Start 05/30/17 at 21:00 Divalproex Sodium (Depakote Sprinkles) 500 mg BID@0900,1700 PO Last administered on 05/31/17 17:44; Start 05/31/17 at 17:00 Quetiapine Fumarate (SEROquel) 75 mg BIDACBL PO Last administered on 05/31/17at 11:35; Start 05/31/17 at 11:30 Morphine Sulfate (Morphine 4mg Syringe) 4 mg PRN Q4HRS PRN IV PAIN Last administered on 05/31/17at 19:40; Start 05/31/17 at 19:30 Active Scripts Active Reported Morphine 4 mg/ml-0.9% NaCl Syr (Morphine Sulfate/0.9% NaCl/Pf) 4 Mg/1 Ml Syringe 4 Mg IV PRN Q4HRS PRN Buspirone Hcl 5 Mg Tablet 5 Mg PO QID7,11,15,19 Zyprexa Zydis (Olanzapine) 5 Mg Tab.rapdis 5 Mg PO PRN Q4HRS PRN Analgesic [place] (Methyl Salicylate/Menthol) 28 Gm Oint...g. 1 Farida TP PRN QID PRN Melatonin 3 Mg Tablet 6 Mg PO HS Depakote Sprinkle (Divalproex Sodium) 125 Mg Cap.sprink 500 Mg PO BID B-12 (Cyanocobalamin (Vitamin B-12)) 1,000 Mcg Tablet 1,000 Mcg PO DAILY Vitamin D3 (Cholecalciferol (Vitamin D3)) 1,000 Unit Tablet 2,000 Unit PO DAILY Amitriptyline Hcl 25 Mg Tablet 25 Mg PO HS Seroquel (Quetiapine Fumarate) 100 Mg Tablet 100 Mg PO HS Seroquel (Quetiapine Fumarate) 100 Mg Tablet 100 Mg PO DAILY16 Lorazepam 1 Mg Tablet 1 Mg PO PRN Q4HRS PRN Seroquel (Quetiapine Fumarate) 100 Mg Tablet 75 Mg PO BIDACBL Mi Acid Suspension (Mag Hydrox/Al Hydrox/Simeth) 355 Ml Oral.susp 30 Ml PO PRN Q6HRS Milk Of Magnesia (Magnesium Hydroxide) 2,400 Mg/10 Ml Oral.susp 30 Ml PO PRN Q6HRS PRN Miralax (Polyethylene Glycol 3350) 17 Gm Powd.pack 1 Packet PO DAILY Tylenol (Acetaminophen) 325 Mg Tablet 1 Tab PO PRN Q6HRS PRN Amlodipine Besylate 10 Mg Tablet 10 Mg PO DAILY Metoprolol Tartrate 25 Mg Tablet 25 Mg PO BID Atorvastatin Calcium 80 Mg Tablet 80 Mg PO QHS I have reviewed the current psychotropics carefully including drug interactions. Risk benefit ratio favors no change other than as noted in my dictated progress note. 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
[2017-05-31] MEDS: LORazepam 1 MG TABLET PO PRN (21:24)
[2017-05-31] MEDS: MELATONIN 3 MG TABLET PO SCH (21:26)
[2017-05-31 21:28] VITALS: BP 158/73
[2017-05-31] MEDS: AMITRIPTYLINE HCL 25 MG TABLET PO SCH (21:28)
[2017-05-31] MEDS: ATORVASTATIN CALCIUM 20 MG TABLET PO SCH (21:28)
[2017-05-31] MEDS ORDERED: HYDROmorphone PF 2 MG/ML VIAL IV PRN (22:00)
[2017-05-31] MEDS ORDERED: HYDR1SYR3 IV (22:10)
--- NOTE | 2017-05-31 22:50 | NUR ---
Nursing note: EMS on unit to transfer pt to [facility]
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
--- NOTE | 2017-06-01 08:54 | NUR ---
BRANDAN received information pt was transferred to [facility] after a fall on unit last night. BRANDAN contacted pt's facility, left message for BRANDAN Cardona at [facility] to notify pt had been transferred to [facility] for hip fracture.
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
== END 2017-05-31 23:04 | disposition short-term general hospital (02) | DRG 56 ==
LOC: ER 14:26 → GEROPSY 15:51
PROVIDERS: ADMIT Psychiatry & Neurology Psychiatry; ATTEND Psychiatry & Neurology Psychiatry
DX: G30.9 Alzheimer's disease, unspecified (principal); S72.001A Fracture of unspecified part of neck of right femur, initial encounter for closed fracture; F01.51 Vascular dementia, unspecified severity, with behavioral disturbance; I48.91 Unspecified atrial fibrillation; F02.81 Dementia in other diseases classified elsewhere, unspecified severity, with behavioral disturbance; W18.39XA Other fall on same level, initial encounter; I10 Essential (primary) hypertension; K59.09 Other constipation; E78.5 Hyperlipidemia, unspecified; F32.9 Major depressive disorder, single episode, unspecified; F41.9 Anxiety disorder, unspecified; F63.9 Impulse disorder, unspecified; G47.00 Insomnia, unspecified; Y92.238 Other place in hospital as the place of occurrence of the external cause; Z79.899 Other long term (current) drug therapy; Z86.73 Personal history of transient ischemic attack (TIA), and cerebral infarction without residual deficits; Y93.89 Activity, other specified; Y99.8 Other external cause status; Z91.83 Wandering in diseases classified elsewhere
CPT/HCPCS: 36415; 73502; 80053; 80061; 80164; 81001; 82306; 82607; 83036; 83540; 83550; 83735; 84436; 84443; 84480; 85025; 86593; 93005; J1170; J2270; 97110; 97116; 97530; 97535; 99285-25